=== PATIENT | female | born 1985 | race Caucasian/White ===

== ENCOUNTER 2025-06-20 16:43 | Emergency (ER) | payer OTHER ==
--- OUTSIDE RECORDS SUMMARY | 2025-06-20 16:48 | XMS REPORT | Continuity of Care Document ---
Author Name Unknown Address [address] [facility] [address] [place] [address] [facility] Address [address] [facility] [place] [address] Care Team Providers Care Purification Operator Helper Name Role Phone Pcp, Pcp Primary Care Physician Unavailab Michelle Chase Attending Clinician Unavail able MARLO MARSHALL Attending Clinician Unavailable Ecg, Phy Sw Attending Clinician Unavailable Marlo Marshall MD Attending Clinician BRANDEN_Mariola_Fabricio Attending Clinician UnavailJuan Esparza Attending Clinician Unavailable BRANEDN_Tonio_Fabricio Attending Clinician Unavail able BRANDEN_CHRISSY_Ricardo_Fabricio Admitting Clinician Unavaila Juan Verma E Admitting Clinician Unavailable BRANDEN_Cassidy Admitting Clinician Unavail able Payers Payer Name Policy Type Policy Number Effective Date Expirati on Date Source AETNA HMO/CHOICE COMM [id number] 2022 00:00:00 [employer] (POS) [id number] 2022 00:00:00 [employer]MIN[employer]AT[employer] - PHCS (PPO) [id number] Problems Condition Name Condition Details Condition Category Status Onset Date Resolution Date Last Treatment Date Treating Clinician Comments Source - induced hypertensi on - induced Hypertensi on Problem Active 10-04 00:00: 00 [facility] Gestationa l diabetes mellitus Gestationa l Diabetes Mellitus Problem Active 2023-1 2-26 00:00: 00 [facility] Gastroesop hageal reflux disease Gastroesop hageal Reflux Disease Problem Active 2022-09 2-13 00:00: 00 [facility] Advanced maternal age Advanced Maternal Age Problem Active 8-02 00:00: 00 [facility] Missed period Missed Period Problem Active 6-19 00:00: 00 [facility] Allergies, Adverse Reactions, Alerts Allergy Name Allergy Type Status Severity Reaction(s) Onset Date Inactive Date Treating Clinician Comments Source No Known Allergie s DA Active U 2-06 00:00: 00 [facility] No Known Allergie s DA Active U 1-17 00:00: 00 [facility] Hydrocod one Allergy to substanc e Active Itching, Other, Unknown - 00:00: 00 Yoni [facility] Social History Social Habit Start Date Stop Date Quantity Comments Source Sexual orientation [facility] ASSERTION Possible [facility] Tobacco use and exposure 2024-09-30 00:00:00 2024-09-30 00:00:00 Smokeless tobacco non-user [facility] Alcoholic beverage intake 2024-09-30 00:00:00 2024-09-30 00:00:00 Lifetime non-drinker (finding) [facility] History of Social function 2024-09-30 00:00:00 2024-09-30 00:00:00 [facility] Smoking Status Start Date Stop Date Source Never smoked tobacco [facility] Medications Ordered Medication Name Filled Medication Name Start Date Stop Date Current Medication? Ordering Clinician Indication Dosage Frequency Signature (SIG) Comments Components Source Multiple Vitamin (multivitam in) capsule Multiple Vitamin (multivitam in) capsule 09-30 09:53: 51 Yes 1{capsu le} QD Take 1 capsule by mouth 1 time each day. Yoni dumont [employer] Vicki 1.5/30 1.5-30 MG-MCG tablet Vicki 1.5/30 1.5-30 MG-MCG tablet 2023-09 00:00: 00 Yes 1{tbl} QD Take 1 tablet by mouth 1 time each day. Yoni dumont [facility] Adderall Adderall No Adderall [facility] Vicki 1.5 mg-30 mcg tablet TAKE 1 TABLET BY MOUTH DAILY Vicki 1.5 mg-30 mcg tablet TAKE 1 TABLET BY MOUTH DAILY No Vicki 1.5 mg-30 mcg tablet TAKE 1 TABLET BY MOUTH DAILY [facility] Wegovy Wegovy No Wegovy [facility] Vital Signs Vital Name Observation Time Observation Value Comments S ource BP Systolic 2025-03-31 00:00:00 123 mm[Hg] [facility] BMI (Body Mass Index) 2025-03-31 00:00:00 26.9 kg/m2 [facility] BP Diastolic 2025-03-31 00:00:00 88 mm[Hg] [facility] Height 2025-03-31 00:00:00 63 [in_i] [facility] Body Weight 2025-03-31 00:00:00 152 [lb_av] [facility] Systolic blood pressure 2024-09-30 09:58:00 107 mm[Hg] [facility] Diastolic blood pressure 2024-09-30 09:58:00 77 mm[Hg] [facility] Heart rate 2024-09-30 09:58:00 91 /[facility] Body height 2024-09-30 09:55:00 160 cm [facility] Body weight 2024-09-30 09:55:00 75.479 kg [facility] BMI 2024-09-30 09:55:00 29.48 kg/m2 [facility] Oxygen saturation in Arterial blood by Pulse oximetry 2024-09-30 09:55:00 98 /min [facility] Systolic blood pressure 2024-09-30 09:58:00 107 mm[Hg] [facility] Diastolic blood pressure 2024-09-30 09:58:00 77 mm[Hg] [facility] Heart rate 2024-09-30 09:58:00 91 /min [facility] height 2024-09-30 09:55:00 160 cm [facility] Body weight 2024-09-30 09:55:00 75.479 kg [facility] BMI 2024-09-30 09:55:00 29.48 kg/m2 Bob Acostaann [facility] Oxygen saturation in Arterial blood by Pulse oximetry 2024-09-30 09:55:00 98 /min [facility] Body Weight 2024-02-26 00:00:00 171 [lb_av] [facility] Height 2024-02-26 00:00:00 63 [in_i] [facility] BP Diastolic 2024-02-26 00:00:00 87 mm[Hg] [facility] BMI (Body Mass Index) 2024-02-26 00:00:00 30.3 kg/m2 [facility] BP Systolic 2024-02-26 00:00:00 128 mm[Hg] [facility] Height 2023-12-04 00:00:00 63 [in_i] [facility] BP Diastolic 2023-12-04 00:00:00 81 mm[Hg] [facility] BMI (Body Mass Index) 2023-12-04 00:00:00 31.7 kg/m2 [facility] Body Weight 2023-12-04 00:00:00 179 [lb_av] [facility] BP Systolic 2023-12-04 00:00:00 125 mm[Hg] [facility] Height 2023-11-06 00:00:00 63 [in_i] [facility] Body Weight 2023-11-06 00:00:00 177 [lb_av] [facility] BMI (Body Mass Index) 2023-11-06 00:00:00 31.4 kg/m2 [facility] BP Diastolic 2023-11-06 00:00:00 82 mm[Hg] [facility] BP Systolic 2023-11-06 00:00:00 133 mm[Hg] [facility] Procedures Procedure Date / Time Performed Performing Clinicia n Source SCREENING MAMMOGRAPHY BI 2-VIEW BREAST INC CAD 2025-03-31 00:00:00 [facility] ECG 12-LEAD 2024-09-30 11:00:51 Marlo Marshall [place] [id number] 2023-10-22 00:00:00 TY.01 [facility] [id number] 2023-10-22 00:00:00 TY.01 [facility] ECG 12 lead [facility] Alejandro [facility] Plan of Care Planned Activity Planned Date Details Comments Source Encounters Start Date/Time End Date/Time Encounter Type Admission Type Attending [facility] Care Facility Care Department Encounter ID Source 2025-03-31 00:00:00 2025-03-31 00:00:00 Juan Olivarez MD: [address] [place] [address] , Ph. [facility] Office [id number] [facility] 2024-09-30 00:00:00 2024-09-30 14:54:46 Telephone Michelle Rodney Carla [facility] [id number] Gwenbruce dumont [facility] 2024-09-30 09:48:29 2024-09-30 10:42:00 Outpatient Elective MARLO MARSHALL EOUT EOUT [id number] 2024-09-30 09:40:00 2024-09-30 10:42:00 Consult Ecg, Phy aMrlo Zamora [facility] 7737 [id number] Yoni dumont [facility] 2024-02-26 00:00:00 2024-02-26 00:00:00 Juan Olivarez MD: [place] [address] , Ph. [facility] Office [id number] [facility] 2023-12-04 00:00:00 2023-12-04 00:00:00 Juan Olivarez MD: [address] [place] [address] , Ph. [facility] Office [id number] [facility] 2023-11-06 00:00:00 2023-11-06 00:00:00 Juan Olivarez MD: [address] [place] [address] , Ph. [facility] Office [id number] [facility] 2023-10-21 10:50:00 2023-10-24 19:36:00 Inpatient Juan Saunders [facility] OB [id number] [facility] 2023-10-18 00:00:00 2023-10-18 00:00:00 Barney Leung MD: [place] [address] , Ph. [facility] Office [id number] [facility] 2023-10-09 00:00:00 2023-10-09 00:00:00 Juan Olivarez MD: [address] [place] [address] , Ph. [facility] Office [id number] [facility] 2023-10-02 16:50:00 2023-10-04 13:55:00 Inpatient Juan Delgado [facility] [id number] [facility] Results Test Description Test Time Test Comments Results Result Co mments Source [facility], LB + HR [id number] 00:00:00* Test Item Value Reference Range Interpretation Comme nts LMP date: (test code = LMP date:) 02/26/2024 Pap, liquid-based (test code = Pap, liquid-based) ASC-US nilm A source (liquid-based cytology): (test code = source (liquid-based cytology):) CERVICAL (WHICH INCLUDES ENDOCERVICAL) [id number] 14:23:00* Test Item Value Reference Range Interpretation Comme nts SURGICAL (test code = SR) R UN DATE: 10/24/23 [facility] PAGE 1 RUN TIME: 1423 Specimen Inquiry RUN USER: INTERFACE P ATIENT: HERB YUN LOC: ZiaANJELUW U #: [id number] AGE/SX: 38/F ROOM: [facility] RE10/21/23REG DR: Juan Olivarez MD : 84 BED: A DIS: STATUS: ADM IN TLOC: SPEC #: [id number] RECD: 10/23/23 STATUS: STEFAN REQ #: [id number] HIRAM: 10/22/23-[address] [facility] DR: Juan Olivarez MD ENTERED: 10/23/23 SP TYPE: SURGICAL OTHR DR: ORDERED: ANATOMIC SPEC, SPEC TRACK, [id number] PROCEDURES: [id number] (10/23/23) TISSUES: A. PLACENTA, THIRD TRIMESTER (28 + WEEKS) FINAL DIAGNOSIS PLACENTA, DELIVERY: Membranes - Mild acute chorioamnionitis and mild meconium staining. Cotyledons - Consistent with gestational age. - Focal increased fibrin deposition. Umbilical cord - Three vessels. GROSS DESCRIPTION Fixative: FormalinLabeled: PlacentaSpecimen received: Javed placenta with attached membranes and attached umbilical cord Umbilical cord: 63 cm in length and ranges in diameter from 1.2 to 2.0 cmUmbilical cord insertion: Central; 8.5 cm from closest placental marginUmbilical cord appearance: Pale leigh-white and smooth with a false knot located 17 cm fromthe discUmbilical cord: 2-3 coils per 10 cm length; 3 vesselsFetal membranes: Leigh-berry, thin, translucentMembrane attachment type: MarginalSite of membrane rupture: Majority of the membranes are torn from the disc; site ofrupture cannot be determined Shape of disc: OvoidTrimmed weight: 647 gDimensions: 28.0 x 22.0 cm and ranging from 0.5-2.5 cm in thicknessFetal surface: Blue-berry, smooth and glisteningMaternal surface: Complete Cut surface: Maroon and spongy soft tissueLesions: None Health Services Manager sections submitted as follows: A1-A2: umbilical cord and membrane roll A3-A4: cross sections of disc 10/23/23 CONTINUED ON NEXT PAGE R UN DATE: 10/24/23 [facility] PAGE 2 RUN TIME: 8763 Specimen Inquiry RUN USER: INTERFACE S PEC #: [id number] PATIENT: EHRB YUN #[id number] (Continued) GROSS DESCRIPTION (Continued) Technical component performed at [facility], [place] [address] Immunohistochemical stains and Special Stains are performed at [facility], [address] [place] [address], [address], [place] [address] Unless gross only, the diagnosis is based upon microscopic examination. Immunohistochemistry: This test was developed and its performance characteristicsdetermined by this laboratory. It has not been approved nor does it need approval by [place] FDA. Appropriate positive and negative controls are reviewed and judged to beacceptable. This laboratory is certified under the Clinical Laboratory ImprovementAmendments (CLIA-88) as qualified to perform high complexity clinical laboratory testing. MICROSCOPIC DESCRIPTION Microscopic examination is performed and the findings are incorporated in the diagnosis. CLINICAL INFORMATION 10/22/23, , 39.2 WEEKS, NRFHT, GDM, GHTN. ---- Signed _ Taras Parra 10/24/23 1423 END OF REPORT HGB [id number] 06:20:00* Test Item Value Reference Range Interpretation Comme nts HEMOGLOBIN (test code = HGB) 10.3 g/dL 10.1-13.8 Results verified by repeat analysis HEMATOCRIT (test code = HCT) 30.8 % 32.5-41.8 L Results verified by repeat analysis Hemoglobin and Hematocrit panel - [id number] 05:23:00* Test Item Value Reference Range Interpretation Comme nts hemoglobin (test code = hemoglobin) 10.3 g/dL 10.1-13.8 hematocrit (test code = hematocrit) 30.8 % 32.5-41.8 L performing lab: (test code = performing lab:) [facility] [id number] 10:30:00* Test Item Value Reference Range Interpretation Comme nts GLUBED (test code = GLUBED) 82 mg/dL 65-110 N [id number] 06:06:00* Test Item Value Reference Range Interpretation Comme nts GLUBED (test code = GLUBED) 131 mg/dL 65-110 H [id number] 00:37:00* Test Item Value Reference Range Interpretation Comme nts GLUBED (test code = GLUBED) 98 mg/dL 65-110 N [id number] 20:38:00* Test Item Value Reference Range Interpretation Comme nts GLUBED (test code = GLUBED) 74 mg/dL 65-110 N [id number] 16:42:00* Test Item Value Reference Range Interpretation Comme nts GLUBED (test code = GLUBED) 98 mg/dL 65-110 N AG HEPATITIS B [id number] 14:24:00* Test Item Value Reference Range Interpretation Comme nts AG HEPATITIS B SURFACE (test code = HBSAG) NONREACTIVE NONREACTIVE AB HEPATITIS C [id number] 14:24:00* Test Item Value Reference Range Interpretation Comme nts AB HEPATITIS C (test code = HCVAB) NONREACTIVE NONREACTIVE SIGNAL TO CUTOFF (test code = CUTOFF) 0.06 <0.80 N AB [id number] 14:24:00* Test Item Value Reference Range Interpretation Comme nts AB TREPONEMA (test code = TREPAB) NONREACTIVE NONREACTIVE AB HIV 1 14:24:00* Test Item Value Reference Range Interpretation Comme nts AB HIV 1 2 (test code = [id number]) NONREACTIVE NONREACTIVE Done by [employer] 4[employer] Gen HIV Ag/Ab Combo Screen COMPREHENSIVE METABOLIC [id number] 13:13:00* Test Item Value Reference Range Interpretation Comme nts SODIUM (test code = NA) 136 mEq/L 135-145 N POTASSIUM (test code = K) 4.3 mEq/L 3.5-5.0 N CHLORIDE (test code = CL) 105 mEq/L 100-115 N CARBON DIOXIDE (test code = CO2) 20 mEq/L 22-31 L ANION GAP (test code = GAP) 15.20 10-20 N GLUCOSE (test code = GLU) 82 mg/dL 65-110 N BLOOD UREA NITROGEN (test code = BUN) 14 mg/dL 7-18 N CREATININE (test code = CREAT) 0.9 mg/dL 0.5-1.0 N TOTAL PROTEIN (test code = PROT) 6.0 gm/dL 6.3-8.2 L ALBUMIN (test code = ALB) 2.2 gm/dL 3.4-4.8 L CALCIUM (test code = CA) 8.8 mg/dL 8.4-10.2 N BILIRUBIN TOTAL (test code = BILT) 0.2 mg/dL 0.2-1.0 N SGOT/AST (test code = AST) 30 units/L 15-37 N SGPT/ALT (test code = ALT) 29 units/L 12-78 N ALKALINE PHOSPHATASE TOTAL (test code = ALKP) 281 units/L 46-116 H GLOMERULAR FILTRATION RATE (test code = GFR) 83 ml/min >60 N The Glomerular Filtration Rate is a calculated parameterbased on serum Creatinine, patient age and sex. GFR valuesless than 60 mL/min/1.73 square meters are indicative ofChronic Kidney Disease. Values less than 15 mL/min/1.73square meters indicate Kidney failure. The calculation forGFR is based on the CKD-EPI (2020) calculation. This formulais race indifferent and is the recommended formula for GFRby the National Kidney Foundation for Adults.The GFR will not calculate if the sex is unknown or if thepatient's age is <18 years. CBC W/AUTO [id number] 12:41:00* Test Item Value Reference Range Interpretation Comme nts WHITE BLOOD CELL (test code = WBC) 10.4 K/mm3 6.5-12.3 N RED BLOOD CELL (test code = RBC) 4.64 M/mm3 3.51-4.69 N HEMOGLOBIN (test code = HGB) 13.6 g/dL 10.1-13.8 N HEMATOCRIT (test code = HCT) 40.3 % 32.5-41.8 N MEAN CELL VOLUME (test code = MCV) 86.9 fL 84.6-96.6 N MEAN CELL HGB (test code = MCH) 29.3 pg 27.3-33.9 N MEAN CELL HGB CONCETRATION ( test code = MCHC) 33.7 gm/dL 32.0-34.2 N RED CELL DISTRIBUTION WIDTH (test code = RDW) 15.9 % 12.2-16.3 N PLATELET COUNT (test code = PLT) 219 K/mm3 134-363 N MEAN PLATELET VOLUME (test c ode = MPV) 11.2 fL 9.2-12.7 N NEUTROPHIL % (test code = NT%) 69.5 % 57.9-77.3 N LYMPHOCYTE % (test code = LY%) 21.7 % 14.5-29.7 N MONOCYTE % (test code = MO%) 6.6 % 3.6-10.2 N EOSINOPHIL % (test code = EO%) 0.5 % 0.0-3.0 N BASOPHIL % (test code = BA%) 0.7 % 0.1-0.9 N NEUTROPHIL # (test code = NT#) 7.2 K/mm3 LYMPHOCYTE # (test code = LY#) 2.3 K/mm3 MONOCYTE # (test code = MO#) 0.7 K/mm3 EOSINOPHIL # (test code = EO#) 0.05 K/mm3 BASOPHIL # (test code = BA#) 0.1 K/mm3 RBC MORPHOLOGY REQUIRED (kobe t code = RBCM) NORMAL NORMAL PLATELET MORPHOLOGY REQUIRED (test code = PLTMR) NORMAL NORMAL COMPREHENSIVE METABOLIC [id number] 06:54:00* Test Item Value Reference Range Interpretation Comme nts SODIUM (test code = NA) 139 mEq/L 135-145 N POTASSIUM (test code = K) 4.7 mEq/L 3.5-5.0 N CHLORIDE (test code = CL) 108 mEq/L 100-115 N CARBON DIOXIDE (test code = CO2) 21 mEq/L 22-31 L ANION GAP (test code = GAP) 14.40 10-20 N GLUCOSE (test code = GLU) 84 mg/dL 65-110 N BLOOD UREA NITROGEN (test code = BUN) 12 mg/dL 7-18 N GLOMERULAR FILTRATION RATE (test code = GFR) 117 ml/min >60 N The Glomerular Filtration Rate is a calculated parameterbased on serum Creatinine, patient age and sex. GFR valuesless than 60 mL/min/1.73 square meters are indicative ofChronic Kidney Disease. Values less than 15 mL/min/1.73square meters indicate Kidney failure. The calculation forGFR is based on the CKD-EPI (202) calculation. This formulais race indifferent and is the recommended formula for GFRby the National Kidney Foundation for Adults.The GFR will not calculate if the sex is unknown or if thepatient's age is <18 years. CREATININE (test code = CREAT) 0.6 mg/dL 0.5-1.0 N TOTAL PROTEIN (test code = PROT) 5.3 gm/dL 6.3-8.2 L ALBUMIN (test code = ALB) 1.9 gm/dL 3.4-4.8 L CALCIUM (test code = CA) 8.6 mg/dL 8.4-10.2 N BILIRUBIN TOTAL (test code = BILT) 0.3 mg/dL 0.2-1.0 SGOT/AST (test code = AST) 31 units/L 15-37 N SGPT/ALT (test code = ALT) 23 units/L 12-78 N ALKALINE PHOSPHATASE TOTAL (test code = ALKP) 232 units/L 46-116 H CBC W/AUTO [id number] 06:36:00* Test Item Value Reference Range Interpretation Comme nts WHITE BLOOD CELL (test code = WBC) 8.8 K/mm3 6.5-12.3 N RED BLOOD CELL (test code = RBC) 4.33 M/mm3 3.51-4.69 N HEMOGLOBIN (test code = HGB) 12.4 g/dL 10.1-13.8 N HEMATOCRIT (test code = HCT) 37.7 % 32.5-41.8 N MEAN CELL VOLUME (test code = MCV) 87.1 fL 84.6-96.6 N MEAN CELL HGB (test code = MCH) 28.6 pg 27.3-33.9 N MEAN CELL HGB CONCETRATION ( test code = MCHC) 32.9 gm/dL 32.0-34.2 N RED CELL DISTRIBUTION WIDTH (test code = RDW) 13.6 % 12.2-16.3 N PLATELET COUNT (test code = PLT) 232 K/mm3 134-363 N MEAN PLATELET VOLUME (test c ode = MPV) 11.5 fL 9.2-12.7 N NEUTROPHIL % (test code = NT%) 58.5 % 57.9-77.3 N LYMPHOCYTE % (test code = LY%) 31.3 % 14.5-29.7 H MONOCYTE % (test code = MO%) 7.4 % 3.6-10.2 N EOSINOPHIL % (test code = EO%) 1.1 % 0.0-3.0 N BASOPHIL % (test code = BA%) 0.8 % 0.1-0.9 N NEUTROPHIL # (test code = NT#) 5.2 K/mm3 LYMPHOCYTE # (test code = LY#) 2.8 K/mm3 MONOCYTE # (test code = MO#) 0.7 K/mm3 EOSINOPHIL # (test code = EO#) 0.10 K/mm3 BASOPHIL # (test code = BA#) 0.1 K/mm3 [id number] 06:04:00* Test Item Value Reference Range Interpretation Comme nts GLUBED (test code = GLUBED) 92 mg/dL 65-110 N [id number] 20:24:00* Test Item Value Reference Range Interpretation Comme nts GLUBED (test code = GLUBED) 117 mg/dL 65-110 H [id number] 15:49:00* Test Item Value Reference Range Interpretation Comme nts GLUBED (test code = GLUBED) 108 mg/dL 65-110 N COMPREHENSIVE METABOLIC [id number] 12:52:00* Test Item Value Reference Range Interpretation Comme nts SODIUM (test code = NA) 137 mEq/L 135-145 N POTASSIUM (test code = K) 3.8 mEq/L 3.5-5.0 N CHLORIDE (test code = CL) 104 mEq/L 100-115 N CARBON DIOXIDE (test code = CO2) 21 mEq/L 22-31 L ANION GAP (test code = GAP) 15.80 10-20 N GLUCOSE (test code = GLU) 132 mg/dL 65-110 H BLOOD UREA NITROGEN (test code = BUN) 17 mg/dL 7-18 N CREATININE (test code = CREAT) 1.0 mg/dL 0.5-1.0 N TOTAL PROTEIN (test code = PROT) 5.7 gm/dL 6.3-8.2 L ALBUMIN (test code = ALB) 1.8 gm/dL 3.4-4.8 L CALCIUM (test code = CA) 8.6 mg/dL 8.4-10.2 N BILIRUBIN TOTAL (test code = BILT) 0.1 mg/dL 0.2-1.0 L SGOT/AST (test code = AST) 23 units/L 15-37 SGPT/ALT (test code = ALT) 20 units/L 12-78 N ALKALINE PHOSPHATASE TOTAL (test code = ALKP) 220 units/L 46-116 H GLOMERULAR FILTRATION RATE (test code = GFR) 73 ml/min >60 N The Glomerular Filtration Rate is a calculated parameterbased on serum Creatinine, patient age and sex. GFR valuesless than 60 mL/min/1.73 square meters are indicative ofChronic Kidney Disease. Values less than 15 mL/min/1.73square meters indicate Kidney failure. The calculation forGFR is based on the CKD-EPI (2021) calculation. This formulais race indifferent and is the recommended formula for GFRby the National Kidney Foundation for Adults.The GFR will not calculate if the sex is unknown or if thepatient's age is <18 years. LIVER [id number] 12:52:00* Test Item Value Reference Range Interpretation Comme nts BILIRUBIN DIRECT (test code = BILD) <0.1 mg/dL <0.2 N [id number] 12:02:00* Test Item Value Reference Range Interpretation Comme nts GLUBED (test code = GLUBED) 97 mg/dL 65-110 N CBC W/AUTO [id number] 11:30:00* Test Item Value Reference Range Interpretation Comme nts WHITE BLOOD CELL (test code = WBC) 7.8 K/mm3 6.5-12.3 N RED BLOOD CELL (test code = RBC) 4.12 M/mm3 3.51-4.69 N HEMOGLOBIN (test code = HGB) 13.1 g/dL 10.1-13.8 N HEMATOCRIT (test code = HCT) 35.8 % 32.5-41.8 N MEAN CELL VOLUME (test code = MCV) 86.9 fL 84.6-96.6 N MEAN CELL HGB (test code = MCH) 31.8 pg 27.3-33.9 N MEAN CELL HGB CONCETRATION ( test code = MCHC) 36.6 gm/dL 32.0-34.2 H RED CELL DISTRIBUTION WIDTH (test code = RDW) 13.5 % 12.2-16.3 N PLATELET COUNT (test code = PLT) 216 K/mm3 134-363 N MEAN PLATELET VOLUME (test c ode = MPV) 10.9 fL 9.2-12.7 N NEUTROPHIL % (test code = NT%) 65.0 % 57.9-77.3 N LYMPHOCYTE % (test code = LY%) 25.8 % 14.5-29.7 N MONOCYTE % (test code = MO%) 6.6 % 3.6-10.2 N EOSINOPHIL % (test code = EO%) 0.9 % 0.0-3.0 N BASOPHIL % (test code = BA%) 0.9 % 0.1-0.9 N NEUTROPHIL # (test code = NT#) 5.1 K/mm3 LYMPHOCYTE # (test code = LY#) 2.0 K/mm3 MONOCYTE # (test code = MO#) 0.5 K/mm3 EOSINOPHIL # (test code = EO#) 0.07 K/mm3 BASOPHIL # (test code = BA#) 0.1 K/mm3 - FLW [id number] 09:15:00 [facility] : 1985 Sex: F Patient Name: HERB YUN Unit No: [id number] EXAMS: C[place]: [id number] [id number] Indication ======== Evaluation of growth History ====== OB History 1. Para 0 Method ====== Transabdominal ultrasound examination ========= Jaevd . Number of fetuses: 1 Dating ====== Date Details Gest. age JOSE Stated JOSE 36 w + 4 d 10/27/2023 U/S 10/03/2023 based upon AC, BPD, Femur, HC, Humerus 38 w + 3 d 10/14/2023 Assigned dating based on statedEDD, selected on 10/03/2023 36 w + 4 d 10/27/2023 General Evaluation Cardiac activitypresent. FHR 148 bpm. Presentation: cephalic Placenta: Placental site: anterior, Grade 2, no previaAmniotic fluid: Amount of AF: normal. MVP 5.4 cm. QAMAR 20.5 cm Biometry BPD 96.3mm 39w 2d >99% Hadlock HC 350.6 mm 40w 6d 97% Hadlock AC 341.5 mm 38w 0d 92% Hadlock Femur 72.5 mm 37w 1d 62% Hadlock Humerus 63.0 mm [facility] NAME: HERB YUN Radiology Department PHYS: Juan Robledo MD [address] : 1985 AGE: 38 SEX: Hanna [place] [address] LOC: Antwan Briones PHONE #: [phone] EXAM DATE: 10/03/2023 STATUS: ADM IN FAX #: [phone] RAD NO: Page 1 Signed Report (CONTINUED) Patient Name: HERB YUN Unit No: [id number] EXAMS: CPT CODE: [id number] [place] FLW UP 13996 (Continued) 36w 4d 72% Johnathon HC / AC 1.03 Weight Calculation: EFW 3,454 g 39w 1d 91% Hadlock EFW (lb,oz) 7 lb10 oz EFW by Hadlock ([id number]) Head / Face / Neck Biometry: Cephalic index 0.76 7% Nicolaides Extremities / Bony Struc Biometry: FL / BPD 0.75 FL / HC 0.21 FL / AC 0.21 Anatomy The following structures appear normal: Head / Neck Cavum septi pellucidi. Heart / Thorax 4-chamber view. Abdomen Stomach. Bladder. Maternal Structures Cervix Not visualized Right Ovary Not visualized Left Ovary Not visualized Impression ========= Suspect LGA fetus (>90%). EFWis 3454 g at the 91%. at 0915 Reported and signed by: Celina Rader MD CC: Juan Olivarez MD Technologist: Paige Canas RDMS Probe: Trnscrbd D/ (914) GCD.CPS Orig Print D/T: S: 10/03/2023 (0915) [facility] NAME: HERB YUN Radiology Department PHYS: Juan Robledo MD [address] : 1985 AGE: 38 SEX: F [place], [place] [address] LOC: F.3014 A PHONE #: [phone] EXAM DATE: 10/03/2023 STATUS: ADM IN FAX #: [phone] RAD NO: Page 2 Signed Report Patient Name: HERB YUN Unit No: [id number] EXAMS: CPT CODE: [id number] US FLW UP 31962 (Continued) [facility] NAME: PRABHUEPHRAIMHERB Radiology Department PHYS: Juan Robledo MD [address] : 1985 AGE: 38 SEX: F [place], [place] [address]XJAC NO: [id number] LOC: Yael4 A PHONE #: [phone] EXAM DATE: 10/03/2023 STATUS: ADM IN FAX #: [phone] RAD NO: Page 3 Signed [id number] 06:07:00 * Test Item Value Reference Range Interpretation Comme nts GLUBED (test code = GLUBED) 96 mg/dL 65-110 N [id number] 21:34:00* Test Item Value Reference Range Interpretation Comme nts GLUBED (test code = GLUBED) 125 mg/dL 65-110 H AG HEPATITIS B [id number] 18:17:00* Test Item Value Reference Range Interpretation Comme nts AG HEPATITIS B SURFACE (test code = HBSAG) NONREACTIVE NONREACTIVE AB HEPATITIS C [id number] 18:17:00* Test Item Value Reference Range Interpretation Comme nts AB HEPATITIS C (test code = HCVAB) NONREACTIVE NONREACTIVE SIGNAL TO CUTOFF (test code = CUTOFF) 0.06 <0.80 N AB [id number] 18:17:00* Test Item Value Reference Range Interpretation Comme nts AB TREPONEMA (test code = TREPAB) NONREACTIVE NONREACTIVE AB HIV 1 18:17:00* Test Item Value Reference Range Interpretation Comme nts AB HIV 1 2 (test code = [id number]) NONREACTIVE NONREACTIVE Done by [employer] 4th Gen HIV Ag/Ab Combo Screen URIC [id number] 17:08:00* Test Item Value Reference Range Interpretation Comme nts URIC ACID (test code = URIC) 5.6 mg/dL 2.6-6.0 N LACTIC DEHYDROGENASE(LDH)2023-10-02 17:08:00* Test Item Value Reference Range Interpretation Comme nts LACTIC DEHYDROGENASE(LDH) (t est code = LDH) 491 units/L 81-234 H COMPREHENSIVE METABOLIC [id number] 17:08:00* Test Item Value Reference Range Interpretation Comme nts SODIUM (test code = NA) 135 mEq/L 135-145 N POTASSIUM (test code = K) 5.4 mEq/L 3.5-5.0 H CHLORIDE (test code = CL) 103 mEq/L 100-115 N CARBON DIOXIDE (test code = CO2) 21 mEq/L 22-31 L ANION GAP (test code = GAP) 16.90 10-20 N GLUCOSE (test code = GLU) 109 mg/dL 65-110 N BLOOD UREA NITROGEN (test code = BUN) 19 mg/dL 7-18 H GLOMERULAR FILTRATION RATE (test code = GFR) 122 ml/min >60 N The Glomerular Filtration Rate is a calculated parameterbased on serum Creatinine, patient age and sex. GFR valuesless than 60 mL/min/1.73 square meters are indicative ofChronic Kidney Disease. Values less than 15 mL/min/1.73square meters indicate Kidney failure. The calculation forGFR is based on the CKD-EPI (2020) calculation. This formulais race indifferent and is the recommended formula for GFRby the National Kidney Foundation for Adults.The GFR will not calculate if the sex is unknown or if thepatient's age is <18 years. CREATININE (test code = CREAT) 0.5 mg/dL 0.5-1.0 N TOTAL PROTEIN (test code = PROT) 6.5 gm/dL 6.3-8.2 N ALBUMIN (test code = ALB) 2.3 gm/dL 3.4-4.8 L CALCIUM (test code = CA) 9.7 mg/dL 8.4-10.2 N BILIRUBIN TOTAL (test code = BILT) 0.3 mg/dL 0.2-1.0 N SGOT/AST (test code = AST) 53 units/L 15-37 H SGPT/ALT (test code = ALT) 25 units/L 12-78 N ALKALINE PHOSPHATASE TOTAL (test code = ALKP) 254 units/L 46-116 H UR PROTEIN/CREATININE [id number] 17:03:00* Test Item Value Reference Range Interpretation Comme nts UR PROTEIN RANDOM (test code = PROTU) 10.2 mg/dL No reference range available UR CREATININE RANDOM (test code = CREATU) 19.7 mg/dL No referenc e range available PROTEIN/CREATININE RATIO (test code = P/CRATIO) 517.7 mg/gcrea <200 H CBC W/AUTO [id number] 16:49:00* Test Item Value Reference Range Interpretation Comme nts WHITE BLOOD CELL (test code = WBC) 10.6 K/mm3 6.5-12.3 N RED BLOOD CELL (test code = RBC) 4.94 M/mm3 3.51-4.69 H HEMOGLOBIN (test code = HGB) 14.4 g/dL 10.1-13.8 H HEMATOCRIT (test code = HCT) 42.6 % 32.5-41.8 H MEAN CELL VOLUME (test code = MCV) 86.2 fL 84.6-96.6 N MEAN CELL HGB (test code = MCH) 29.1 pg 27.3-33.9 N MEAN CELL HGB CONCETRATION ( test code = MCHC) 33.8 gm/dL 32.0-34.2 N RED CELL DISTRIBUTION WIDTH (test code = RDW) 13.5 % 12.2-16.3 N PLATELET COUNT (test code = PLT) 261 K/mm3 134-363 N MEAN PLATELET VOLUME (test c ode = MPV) 11.0 fL 9.2-12.7 N NEUTROPHIL % (test code = NT%) 69.6 % 57.9-77.3 N LYMPHOCYTE % (test code = LY%) 22.8 % 14.5-29.7 N MONOCYTE % (test code = MO%) 5.6 % 3.6-10.2 N EOSINOPHIL % (test code = EO%) 0.4 % 0.0-3.0 N BASOPHIL % (test code = BA%) 0.8 % 0.1-0.9 N NEUTROPHIL # (test code = NT#) 7.4 K/mm3 LYMPHOCYTE # (test code = LY#) 2.4 K/mm3 MONOCYTE # (test code = MO#) 0.6 K/mm3 EOSINOPHIL # (test code = EO#) 0.04 K/mm3 BASOPHIL # (test code = BA#) 0.1 K/mm3 URINALYSIS [id number] 16:48:00* Test Item Value Reference Range Interpretation Comme nts UA COLOR (test code = COLU) YELLOW YELLOW UA APPEARANCE (test code = APPU) CLEAR CLEAR UA GLUCOSE DIPSTICK (test co de = DGLUU) NEGATIVE NEGATIVE UA BILIRUBIN DIPSTICK (test code = BILU) NEGATIVE NEGATIVE UA KETONE DIPSTICK (test cod e = KETU) NEGATIVE NEGATIVE UA SPECIFIC GRAVITY (test co de = SGU) 1.010 1.001-1.035 N UA BLOOD DIPSTICK (test code = MORGAN) NEG NEGATIVE UA PH DIPSTICK (test code = EDDIE) 6.0 5-9 UA PROTEIN DIPSTICK (test co de = PROU) NEGATIVE NEGATIVE UA UROBILINIOGEN DIPSTICK (t est code = URO) 0.2 EU/dL <=1.0 UA NITRITE DIPSTICK (test co de = NORMA) NEGATIVE NEGATIVE UA LEUKOCYTE ESTERASE DIPSTI CK (test code = LEUU) 3+ NEGATIVE A UA WBC (test code = WBCU) 21-30 #/hpf NONE SEEN A UA EPITHELIAL CELLS (test co de = EPIU) RARE #/HPF RARE-FEW UA RBC (test code = RBCU) 16-20 #/hpf NONE SEEN A UA BACTERIA (test code = BACU) RARE /HPF RARE-FEW URINE SAMPLE: CLEAN CATCH Notes Current Outpatient Medications on File Prior to VisitCurrent Outpatient MedicationsDIAGNOSTIC TESTS / RESULTSNo results found for: "CHOL", "HDL", "LDLCALC", "TRIG", "HGB", "PLT",# hyperlipidemia Date/Time Note Provider Source 2024-09-30 20:15:19 [facility] 2024-09-30 20:15:19 Marlo Marshall MD - 09/30/2024 9:40 AM 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 female who presented today for scheduled nonurgent appointment. Patient delivered a year ago, had gestational and briefly elev. Bp Now planning another Had sign. Elevated TG, Also taking adderal Not adherent to any specific diet Denies problems with chest pain / chest discomfort. Blood pressure is stable Denies palpitations / irregular heart beat. No shortness of breath at rest or with regular daily life activities. Exertional tolerance without significant changes. Denies problems suggestive of PND / orthopnea. No lower extremity edema No lower extremity pain. Denies problems with syncope/presyncope. No side effects from current medications reported. Recent blood work and testing reviewed / summarized below. PHYSICAL General: no acute distress, resting comfortably HEENT: anicteric sclerae, oral mucosa moist Neck: supple, carotid upstrokes brisk, no mass Cardiovascular: heart rate regular , no murmur Lungs: Normal respiratory effort, lungs clear to auscultation bilaterally Abdomen: soft, non-distended, no guarding, + BS Extremities: no clubbing, no edema Skin: warm, no jaundice, Psych: coherent, mood appropriate REVIEW OF SYSTEMS 14 point review of systems reviewed and pertinent positives were documented above. 09/30/2024 9:55 AM 09/30/2024 9:58 AM Vitals BMI 29.48 kg/m2 BSA (m2) 1.83 m2 Systolic 123 107 Diastolic 81 77 Heart Rate 92 91 Height (in) 1.6 m (5' 3") Weight (lb) 166.4 There is no problem list on file for this patient. History reviewed. No pertinent past medical history. No family history on file. Social History Social History Narrative Not on file Allergies Allergen Reactions Hydrocodone Itching, Other and Unknown Tobacco Use: Low Risk (09/30/2024) Patient History Smoking Tobacco Use: Never Smokeless Tobacco Use: Never Passive Exposure: Not on file Medication Sig Vicki 1.5/30 1.5-30 MG-MCG tablet Take 1 tablet by mouth 1 time each day. Multiple Vitamin (multivitamin) capsule Take 1 capsule by mouth 1 time each day. No current facility-administered medications on file prior to visit. Medication Instructions Vicki 1.5/30 1.5-30 MG-MCG tablet 1 tablet, Daily Multiple Vitamin (multivitamin) capsule 1 capsule, Daily "CREATININE", "BUN", "HGBA1C", "AST", "ALT" No echocardiogram results found for the past 12 months No nuclear medicine results found for the past 12 months Encounter Date: 09/30/24 ECG 12 lead Result Value Ventricular Rate 94 Atrial Rate 94 PA Interval 142 QRS Duration 72 QT/QTc 336 QTc Calculation 420 P-Villas 68 R-Villas 68 T-Villas 64 Impression SINUS RHYTHM NORMAL ECG NO PREVIOUS ECGS AVAILABLE ASSESSMENT AND PLAN Herb Yun is a 39 y.o. female with past medical history of : # gestational diabetes # peripartum HTN # ADD / on Adderall Prior mild gestational complications, Currently cp free, No sob ECG with normal SR, Pt now planning another , Will proceed with calcium score for risk stratification Discussed weight, diet, exercise with patient in relation to health conditions. The patient was counseled on dietary recommendations (DASH/AHA diet). Discussed target goals for blood pressure < 130/80. Reduce sodium intake below 2300 mg per day and ideally below 1500mg per day. Recommend limiting saturated fat to 5 to 6 percent of daily calories and minimizing the amount of trans fat. Implement a dietary pattern that emphasizes intake of vegetables, fruits, and whole grains; includes low-fat dairy products, poultry, fish, legumes, nontropical vegetable oils, and nuts. Limit intake of sweets, sugar-sweetened beverages, and red meats. Encouraged mild to moderate physical activity for ~ 30min daily / 5 days per week as well as continuing efforts to maintain a desirable body weight. Will follow up on CCS / if needed will proceed with additional testing. RTC as needed. care services related to patient s significant medical conditions which have consistency and continuity over time. *)Amount and/or complexity of data reviewed: Vital signs reviewed as summarized above. Clinical laboratory data, radiology / imaging tests reviewed Medications reviewed and updated as noted above. Related cardiology testing including new EKG, echocardiography, stress testing or angiography data was independently reviewed and verified. Additional records including imaging, notes from primary care physicians, subspecialty consultants, prior medical encounters were reviewed and pertinent info summarized. Time spent in examination and evaluation of the patient, review of available medical records, / chart review, counseling and coordination of care including discussion of treatment plans and goals of care, ordering tests and prescriptions, coordination of further care and preparing medical documentation. dictation software available immediately and in its entirety to the patient. The purpose of this medical record is for communication between medical health researcher, and as a result of such includes medical terminology and/or abbreviations. This documentation reflects time spent with the patient as well as potential time spent performing research, consultation, and/or record review that may have occurred outside of the patient encounter, and as result of human error may include minor omissions or discrepancies that are not intentional. Communication between the patient and physician is performed in person/virtual during the time of the visit and via written patient instructions, which are intentionally as free of medical terminology as possible. Any specific questions about this documentation are welcome, but may require a video, telephone, or in office encounter with the physician, which would be subject to copay and/or deductible. LINES OPERATOR [facility] Maintenance Due Date Last Done Comments Annual Physical 1987 Varicella Vaccines (1 of 2 - 13+ 2-dose series) 1997 DTaP/Tdap/Td Vaccines (1 - Tdap) 2003 Hepatitis B Vaccines (1 of 3 - 19+ 3-dose series) 2003 Pap Smear 2005 Cervical Cancer Screening 2014 HPV/Cotest 2014 Influenza Vaccine (#1) 2024 Mammogram 2024 Lipid Panel 09/01/2029 09/01/2024 HIB Vaccines Aged Out No longer eligi ble based on patient's age to complete this topic HPV Vaccines Aged Out No longer eligi ble based on patient's age to complete this topic Hepatitis A Vaccines Aged Out No long er eligible based on patient's age to complete this topic IPV Vaccines Aged Out No longer eligi ble based on patient's age to complete this topic Meningococcal Vaccine Aged Out No luzmaria ambrocio eligible based on patient's age to complete this topic Pneumococcal Vaccine: Pediat rics (0 to 5 Years) and At-Risk Patients (6 to 64 Years) Aged Out No longer eligible b ased on patient's age to complete this topic Rotavirus Vaccines Aged Out No longer eligible based on patient's age to complete this topic [id number] 20:15:19 Diagnosis Mixed hyperlipidemia - Prima ry Cardiac risk counseling [facility] [id number] 20:15:19 [facility] HospitalEzgojrv1022-20-40 14:54:52 [facility] [id number] 14:54:52 [place] [id number] 14:53:17 Order for Calcium score faxed to [place], confirmation received. [facility] location fax [phone] LINES OPERATOR [facility] [id number] 00:00:[id number] [address] PATIENT NAME: HERB YUN ADMIT DATE: 10/21/23 ACCOUNT NO: [id number] ROOM NO: [facility] AGE: 38 SEX: F ADMITTING PHYSICIAN: Juan Olivarez MD ATTENDING PHYSICIAN: Juan Olivarez MD Provider Query QUERY TEXT: Clarification Pathology 360MD Query related questions should be directed to: [facility] Coding Query Helpline Based on your clinical judgment, can you confirm the diagnosis that represents the pathology finding(s) of [Mild acute chorioamnionitis]? Reporting of pathology findings require confirmation by the attending physician and/or surgeon. The patient's Clinical Indicators include: Mild acute chorioamnionitis - Pathology 10/24/23 Options provided: -- I am in agreement -- I am not in agreement -- Other - I will add my own diagnosis -- Dismiss - Not applicable / Not valid -- Dismiss - Clinically unable to determine / Unknown -- Assign to another provider QUERY RESPONSE: No, I am not in agreement with the pathology finding(s) noted above. Query created by: DANIELA HOLLAND on 10/26/2023 6:16 AM at 0000 PATIENT NAME: HERB YUN 00:00:[id number] [place] [address] PATIENT NAME: HERB YUN ADMIT DATE: 10/21/23 ACCOUNT NO: [id number] ROOM NO: F.2222 AGE: 38 SEX: F ADMITTING PHYSICIAN: Juan Olivarez MD ATTENDING PHYSICIAN: Juan Olivarez MD Provider Query QUERY TEXT: Condition OB Blood Loss 360MD Query related questions should be directed to: [facility] Coding Query Helpline Based on your clinical judgment, please clarify the condition(s) that represent(s) the clinical indicators listed below. The medical record reflects the diagnosis/procedure of [Primary low uterine transverse section ] and associated [Insert disease process, trauma or surgery]. [OPERATIVE REPORT 10/22/2023)]: The patient's Clinical Indicators include: HEMATOCRIT (%) 30.8L 40.3 - LAB HEMOGLOBIN (g/dL) 10.3 13.6 - LAB Primary low uterine transverse section - OPERATIVE REPORT 10/22/2023 ESTIMATED BLOOD LOSS: 700. - OPERATIVE REPORT 10/22/2023 Continue taking these medications: PNV WITH FE FUMARATE/FA () 27 MG IRON-800 MCG TAB 1 TABLET ORAL DAILY. - OB Discharge 10/24/2023 Options provided: -- Acute hemorrhagic/blood loss anemia -- Chronic blood loss anemia -- Acute on chronic blood loss anemia -- Iron deficiency anemia -- Other deficiency anemia, Please specify type (e.g. vitamin, B12, folate, etc.) -- Inherited anemia, Please specify type (e.g. sickle cell, thalassemia, etc). -- Decreased hemoglobin and hematocrit values not diagnosed as anemia -- Dilutional -- Drug induced anemia, Please specify drug. -- Anemia due to other condition, Please specify condition. -- Anemia, unspecified -- Other - I will add my own diagnosis -- Dismiss - Not applicable / Not valid -- Dismiss - Clinically unable to determine / Unknown -- Assign to another provider QUERY RESPONSE: The patient decreased hemoglobin and hematocrit values not diagnosed as anemia. Query created by: DANIELA HOLLAND on 10/26/2023 6:20 AM at 0000 PATIENT NAME: HERB YUN 15:03:00 [facility] OB Disch REPORT#:[id number] REPORT STATUS: Signed REPORT INITIALIZATION DATE:10/24/23 TIME: 1502 PATIENT: HERB YUN UNIT #: [id number] ROOM/BED: [address] : [birth year] AGE: 38 SEX: F ATTEND: Juan Olivarez MD ADM AUTHOR: Juan Olivarez MD REPT SERVICE DT/TIME: 10/24/23 1503 * ALL edits or amendments must be made on the electronic/computer document * Subjective Subjective Admission EGA: Weeks: 39 Days: 2 Status/day: post (Day 2), post operative (Day 1) Patient reports: Patient reports: Yes: normal lochia, pain management effective, tolerating po well, voiding well, tolerating ambulation. No: complaints. Objective General VS: Vital Signs Date Temp Pulse Resp B/P B/P Mean Pulse Ox FiO2 10/23-10/24 97.2-97.9 91-97 18-19 100-146/64-85 76.0-79.0 97-99 Last Documented: Result Date Time Pulse Ox 98 10/24 1300 B/P 145/85 10/24 1300 Temp 97.5 10/24 1300 Pulse 92 10/24 1300 Resp 18 10/24 1300 B/P Mean 76.0 10/23 2019 PATIENT WEIGHT: Weight (lb): 200 Weight (oz): Weight (kg): 90.900 Physical Exam Neuro: Exam: alert, oriented x3 Abdomen: soft, no abnormal tenderness, no guarding Incision site: well approximated edges, no drainage, no inflammation Uterus: involution appropriate, non-tender Lochia: normal Episiotomy or laceration: well approximated edges, no inflammation, no drainage noted Results Findings/Data: Laboratory Tests: 10/23 522 Hematology Hgb (10.1 - 13.8 g/dL) 10.3 Hct (32.5 - 41.8 %) 30.8 L Results: labs reviewed, vital signs stable Treatments Procedures Treatments Procedures: Primary LTCS Discharge Summary General Assessment: nml progress Date of admission: Date of admission: 10/21/23 Admission diagnosis: diabetes-gestational, HTN-gestational Hospital course: cervical ripening, induction of labor, primary LTCS in labor, epidural anesthesia, nml postop/postpart care Procedures: epidural anesthesia, primary CS delivery Discharge condition: stable Discharge to: Home/Self Care Discharge diagnosis: full-term uncomp delivery, gestational diabetes, gestational HTN Discharge management: less than 30 mins Baby A: status: live born Gender: male 1 minute: 9 5 minutes: 9 Nursing data: The data set between the solid lines has been imported from nursing documentation. Any exceptions have been noted below under Provider comments. Delivery date infant A: 10/22/23 Delivery time infant A: 1157 Birthweight (gm) infant A: 3630 Feeding preference: Gender A: Male 1 minute A: 9 5 minutes A: 9 10 minutes infant A: Provider comments on imported nursing data: [] Plan: routine care, circumcision today, discharge today Discharge Instructions Instructions: routine instr sheet given, instr and warnings rev'd, specific instr as noted Diet: Regular Activity: Do not Submerge Incision, Light Duty, No Driving, No [place] for 6 Wks Additional discharge routines: Attending Follow-Up Contraception discussed: abstinence for 4-6 weeks, will discuss at PP visit Discharge meds: Stop taking the following medications: ASPIRIN EC (ECOTRIN) 81 MG TAB.EC [address] MILLIGRAM ORAL DAILY. PANTOPRAZOLE DR (PROTONIX) 40 MG TAB.DR 40 MILLIGRAM ORAL DAILY. Continue taking these medications: PNV WITH FE FUMARATE/FA () 27 MG IRON-800 MCG TAB 1 TABLET ORAL DAILY. Prescriptions: e-prescribe Rx drug database reviewed: yes Add'l Follow-up Appointments Attending Physician: Attending Physician: Juan Olivarez MD Attending physician follow up timeframe: In 1-2 weeks at 1506 RPT #:[id number] END OF REPORT [id number] 13:26:00 [facility] OB Postpart Progr Note REPORT#:[id number] REPORT STATUS: Signed REPORT INITIALIZATION DATE:10/23/23 TIME: 1326 PATIENT: AJMAHERB OWEN UNIT #: [id number] ROOM/BED: [address] : [birth year] AGE: 38 SEX: F ATTEND: Juan Olivarez MD ADM AUTHOR: Juan Olivarez MD REPT SERVICE DT/TIME: 10/23/23 1326 * ALL edits or amendments must be made on the electronic/computer document * Subjective Subjective Admission EGA: Weeks: 39 Days: 2 Status/day: post operative (Day 1) Patient reports: Patient reports: Yes: normal lochia, pain management effective, tolerating po well, voiding well. No: complaints. Objective Nursing Documentation Review Nursing data: The data set between the solid lines has been imported from nursing documentation. Any exceptions have been noted below under Provider comments. Feeding preference: Post hemorrhage risk score: MedRisk Provider comments on imported nursing data: [] General VS: Vital Signs Date Temp Pulse Resp B/P B/P Mean Pulse Ox FiO2 10/22-10/23 97.5-98.9 74-92 16-30 100-169/59-103 80.0-126.0 97-99 Last Documented: Result Date Time B/P Mean 80.0 10/23 1200 Pulse Ox 98 10/23 1200 B/P 108/66 10/23 1200 Temp 97.5 10/23 1200 Pulse 78 10/23 1200 Resp 18 10/23 1200 PATIENT WEIGHT: Weight (lb): 200 Weight (oz): Weight (kg): 90.900 Medications: Active Meds + DC'd Last 24 Hrs Ibuprofen (IBUPROFEN 600 MG TAB) 600 MG Q6H PO Multivit/Folic Acid/Iron ( Vitamin Tablet) 1 TAB DAILY PO Oxycodone HCl (OXYIR 5MG TAB) 5 MG Q4H PRN PRN PO Oxycodone HCl (Oxycodone HCl 10 MG IR) 10 MG Q4H PRN PRN PO Docusate Sodium (DOCUSATE SODIUM 100 MG CAP) 100 MG Q12HR PO Ondansetron Base (ZOFRAN ODT 4MG) 4 MG Q6H PRN PRN PO Ondansetron HCl (ZOFRAN 2 MG/ML 4 MG SYR) 4 MG Q6H PRN PRN IV Acetaminophen (ACETAMINOPHEN 325 MG TAB) 650 MG Q6H PO Ketorolac Tromethamine (TORADOL 30 MG SYRINGE) 30 MG Q6HR IV (DC) Labetalol HCl (LABETALOL HCL 200 MG) 200 MG Q8H PO Bupivacaine HCl (SENSORCAINE PF 0.25% 30 ML) 30 ML .STK-MED ONE ZCHARGE (DC) Lidocaine/Epinephrine (XYLOCAINE 2%-EPI 1:200,000 - 20 ML PF) 20 ML .STK-MED ONE ZCHARGE (DC) Labetalol HCl (NORMODYNE 100 MG) 100 MG Q4H PRN PRN PO (DC) Oxytocin/Sodium Chloride (Oxytocin 15 units/NS 250 mL) 250 ML .STK-MED ONE INJ (DC) Al Hydrox/Mg Hydrox/Simethicone (MYLANTA 30 ML SUSP) 30 ML Q6H PRN PRN PO Dextrose/Lactated Ringer's (DEXTROSE 5% IN LACTATED RINGERS 1000 ML) 1,000 ML .[id number] IV (DC) Diphtheria/Pertussis/Tetanus Vacc (ADACEL VACCINE) 0.5 ML ASDIR IM Hydralazine HCl (hydrALAZINE HCL 20MG) 5 MG ONCE PRN IV (DC) Hydralazine HCl (hydrALAZINE HCL 20MG) 10 MG ASDIR PRN IV (DC) Hydrocortisone (HYDROCORTISONE 1%) 1 APPL ASDIR PRN TOPICAL Hydrocortisone/Pramoxine (ANALPRAM HC 2.5% CRM SINGLES) 1 GM ASDIR PRN RECTAL (CKD) Hydroxyzine HCl (ATARAX) 25 MG Q6H PRN PRN PO Labetalol HCl (NORMODYNE 100 MG/20 ML VIAL) 20 MG ASDIR PRN IV (DC) Labetalol HCl (NORMODYNE 100 MG/20 ML VIAL) 40 MG ASDIR PRN IV (DC) Measles/Mumps/Rubella Vaccine Live (M-M-R II VACCINE W DILUENT) 0.5 ML BEFORE DISCHG PRN SUBQ Methylergonovine Maleate (METHERGINE 0.2 MG/ML 1 ML AMP) 0.2 MG ASDIR PRN IM Naloxone HCl (NALOXONE HCL 0.4 MG/ML 1 ML VIAL) 0.04 MG Q4H PRN PRN IV Naloxone HCl (NALOXONE HCL 0.4 MG/ML 1 ML VIAL) 0.08 MG Q4H PRN PRN IV Neomycin/Polymyxin/Bacitracin (TRIPLE ANTIBIOTIC 0.94 GM) 1 APPLIC BID PRN TOPICAL Polyethylene Glycol (POLYETHYLENE GLYCOL PKT) 17 GM DAILY PRN PRN PO Senna (SENOKOT TAB) 2 TAB BEDTIME PRN PRN PO (CKD) Simethicone (SIMETHICONE 80 MG TAB) 80 MG PC HS PRN PRN PO Tranexamic Acid (Tranexamic Acid) 1,000 MG ASDIR PRN IV Sodium Chloride (SODIUM CHLORIDE 0.9% 100 mL MBP) 100 ML Zolpidem Tartrate (AMBIEN 5 MG UDTAB) 5 MG BEDTIME PRN PRN PO Physical Exam Neuro: Exam: alert, oriented x3 Abdomen: soft, no abnormal tenderness, no guarding Incision site: well approximated edges, no drainage, no inflammation Uterus: involution appropriate, non-tender Lochia: normal Results Findings/data: Laboratory Tests: 10/23 522 Hematology Hgb (10.1 - 13.8 g/dL) 10.3 Hct (32.5 - 41.8 %) 30.8 L Results: labs reviewed, vital signs stable Diagnosis, Assessment Plan Diagnosis, Assessment Plan Assessment: nml progress Plan: routine care, circumcision today, discharge tomorrow Plan discussed with: patient, spouse/partner at 1327 RUST #:[id number] END OF REPORT [id number] [facility] [address] [place], [place] [address] PATIENT NAME: HERB YUN ADMIT DATE: 10/21/23 ACCOUNT NO: [id number] ROOM NO: [facility] AGE: 38 SEX: F ADMITTING PHYSICIAN: Juan Olivarez MD ATTENDING PHYSICIAN: Juan Olivarez MD OPERATION DATE: 10/22/2023 PREOPERATIVE DIAGNOSES: 1. Term intrauterine at 39 and 2/7 weeks. 2. Gestational hypertension. 3. Gestational diabetes. 4. Persistent category 2 strip with failure to progress and inability to augment with Pitocin. POSTOPERATIVE DIAGNOSES: 1. Term intrauterine at 39 and 2/7 weeks. 2. Gestational hypertension. 3. Gestational diabetes. 4. Persistent category 2 strip with failure to progress and inability to augment with Pitocin. PROCEDURES PERFORMED: Primary low uterine transverse section. SURGEON: Aleisha Lee MD LINSEED OIL ORDER FILLER: Madhu Elizondo ANESTHESIA: Combined spinal epidural. ESTIMATED BLOOD LOSS: 700. INTRAVENOUS FLUIDS: 1 liter. URINE OUTPUT: 50. COMPLICATIONS: None. DISPOSITION: PACU and general nursery. FINDINGS: Include the following: A viable vigorous male infant with clear amniotic fluid in the vertex presentation high in the pelvis with a nuchal cord around the neck and the shoulder x1. Apgars 9 and 9, weight 8 pounds 0 ounces (3630 grams). PROCEDURE IN DETAIL: As follows: Herb was taken to the operating room in Labor and Delivery at [facility] where she was dosed via her indwelling epidural catheter for surgical level of anesthesia. She was placed in the left lateral tilt position. heart tones were checked and found to be PATIENT NAME: HERB YUN reassuring. Hansen catheter was in place from labor. SCDs were placed. Vaginal prep was performed due to being in labor with ruptured membranes. Once anesthesia confirmed an adequate level of anesthesia, then, an abdominal prep was performed in standard fashion. The patient was then prepped and draped in routine standard sterile fashion. An Allis test confirmed adequate level of anesthesia, timeout was performed and then an incision was created 2 cm above the symphysis pubis with skin knife. Deeper tissues were dissected with bipolar cautery to the level of the fascia, which was incised on either side of the midline and extended sharply. Two [place] were placed on the superior portion of the fascia, which was dissected off the rectus muscle superiorly and inferiorly bluntly as well as with bipolar cautery. Midline muscle was identified in a natural diastasis and furthered superiorly and inferiorly with blunt stretch and sharp dissection. Peritoneum was entered sharply, dissected inferiorly with bipolar cautery with care being taken not to penetrate the urinary bladder or any intraperitoneal contents. Blunt stretch furthered the incision bilaterally. vertex was palpated and found to be at the level of the incision. Russians and Warren were used to create a curvilinear incision in the lower uterine segment serosa and the bladder was bluntly dissected off the uterus. Bladder blade was replaced and then, uterus was scored in a curvilinear fashion with the deep knife. Successive passes resulted in entrance into the amniotic cavity, producing large amounts of clear amniotic fluid. vertex was stabilized and gentle fundal pressure resulted in delivery of the vertex. Nose and mouth were bulb suctioned. Nuchal cord was reduced. Remainder of the was delivered. Cord was clamped and cut. was passed to the nurse for evaluation. Placenta was extracted and discarded for pathological evaluation due to persistent category 2. Uterus was exteriorized, wrapped in moist lap, cleared of all clots and debris x2. Hysterotomy was closed with a running locked stitch of 0 Vicryl. Two additional [id number] were necessary resulting in excellent hemostasis. Bladder flap was closed with a running 2-0 Vicryl. Uterus was returned to the pelvis. Gutters were cleared of all clots and debris with copious irrigation. Hysterotomy was reinspected and found to be hemostatic. Peritoneum was closed with a running 2-0 Vicryl, muscles reapproximated with interrupted 2-0 Vicryl. Fascia was closed with 0 PDS x2. Subcutaneous tissues were irrigated, inspected and found to be hemostatic, reapproximated with a 2-0 plain and skin was closed with a subcuticular stitch. Sponge, lap, needle and instrument counts reported as correct. The patient went to PACU in good condition, as well and general nursery. Dictated By: Aleisha Lee MD Date Dictated: 10/22/2023 12:46:37 Date Transcribed: 10/22/2023 12:56:27 CASANDRA/ENOCH Receipt ID: [id number] Authenticated by Gloria Lee MD On 10/23/2023 05:36:53 AM at 0536 PATIENT NAME: HERB YUN 12:34:00 [facility] ([facility]) OB Delivery Note REPORT#:[id number] REPORT STATUS: Signed REPORT INITIALIZATION DATE:10/22/23 TIME: 1234 PATIENT: HERB YUN UNIT #: [id number] ROOM/BED: [address] : [address] AGE: 38 SEX: F ATTEND: Juan Olivarez MD ADM AUTHOR: Aleisha Lee MD REPT SERVICE DT/TIME: 10/22/23 1234 * ALL edits or amendments must be made on the electronic/computer document * OB Delivery Pre-delivery GBS status: GBS status: positive Prophylaxis administered: penicillin Admission EGA: Weeks: 39 Days: 2 Blood Loss/Details Blood loss at delivery: <1K: no sx hypovol=no hem, 700 Baby A Information Baby A information Delivery date: 10/22/23 Delivery time: 1157 status: live born Wt of baby (grams): 3630 Wt of baby (lbs/oz): 8#0 Gender: male 1 minute: 9 5 minutes: 9 Presentation: vertex Nuchal cord Baby A Nuchal cord: yes (loose and reduced) Delivery Delivery section indication: persistent category 2 Priority: indicated (add on) Decision to incision time: greater than 30 mins Antibiotic prior to incision: more than 1 dose )(SCDs applied activated: Yes Uterine incision: low transverse Consent: indication discussed, questions answered, pt consent to op delivery Mother's condition: mother stable Infant's condition: stable in room at 1241 RPT #:[id number] END OF REPORT [id number] 08:47:00 [facility] ([facility]) OB Intrapart Prog Note REPORT#:[id number] REPORT STATUS: Signed REPORT INITIALIZATION DATE:10/22/23 TIME: 08 PATIENT: HERB YUN UNIT #: [id number] ROOM/BED: [address] : [address] AGE: 38 SEX: F ATTEND: Juan Olivarez MD ADM AUTHOR: Aleisha Lee MD REPT SERVICE DT/TIME: 10/22/23 0847 * ALL edits or amendments must be made on the electronic/computer document * Subjective Subjective Patient reports: Patient reports: Yes comfortable with epidural Comments: overnight hx reviewed w/pt, and RN SROM 10/21- cyotec last pm w/pitocin this am last u/s: LGA VS MACROSOMIA at 34 weeks Objective Nursing Documentation Review Nursing data: The data set between the solid lines has been imported from nursing documentation. Any exceptions have been noted below under Provider comments. __ ROM date: 10/21/23 ROM time: 2029 __ Provider comments on imported nursing data: [] General VS: Last Documented: Result Date Time Pulse Ox 98 10/22 0758 Pulse 98 10/22 0758 B/P Mean 93.0 10/22 0757 B/P 140/65 10/22 0757 Temp 98.3 10/22 0754 Resp 16 10/21 2231 Vital Signs Date Temp Pulse Resp B/P B/P Mean Pulse Ox FiO2 10/21-10/22 97.8-98.8 81-113 16-18 114-189/57-10 82.0-138.0 97-100 2 PATIENT WEIGHT: Weight (lb): 200 Weight (oz): Weight (kg): 90.900 Objective Cervical/ exam: Dilatation (cm): 7 Effacement (%): 100 station: - 2 presentation: cephalic Uterine activity: Monitor: toco Frequency (description): regular Intensity: strong Resting tone: relaxed Current oxytocin: Indication: induction Infusion rate: 6.00 Procedures: artificial rupture memb, intrauterine press cath, vaginal exam, + forebag... fluid blood tinged but clear Vaginal bleeding: as expected FHR Evaluation Baby A: Baby A baseline: 150 bpm Baby A variability: moderate 6-25 bpm Baby A accelerations: 15 X 15 Baby A decelerations: late Baby A FHR category: category 1 Baby A notes: occ late timed shallow decelerations w/accels o/w Result Findings/Data: Laboratory Tests: 10/22 10/22 10/21 10/21 10/21 0603 0034 2036 1638 1226 Chemistry Sodium (135 - 145 mEq/L) 136 Potassium (3.5 - 5.0 mEq/L) 4.3 Chloride (100 - 115 mEq/L) 105 Carbon Dioxide (22 - 31 mEq/L) 20 L Anion Gap (10 - 20) 15.20 BUN (7 - 18 mg/dL) 14 Creatinine (0.5 - 1.0 mg/dL) 0.9 Glomerular Filtr Rate (>60 ml/min) 83 Glucose (65 - 110 mg/dL) 82 POC Glucose (65 - 110 mg/dL) 131 H 98 74 98 Calcium (8.4 - 10.2 mg/dL) 8.8 Total Bilirubin (0.2 - 1.0 mg/dL) 0.2 AST (15 - 37 units/L) 30 ALT (12 - 78 units/L) 29 Total Alk Phosphatase (46 - 116 281 H units/L) Total Protein (6.3 - 8.2 gm/dL) 6.0 L Albumin (3.4 - 4.8 gm/dL) 2.2 L Hematology WBC (6.5 - 12.3 K/mm3) 10.4 RBC (3.51 - 4.69 M/mm3) 4.64 Hgb (10.1 - 13.8 g/dL) 13.6 Hct (32.5 - 41.8 %) 40.3 MCV (84.6 - 96.6 fL) 86.9 MCH (27.3 - 33.9 pg) 29.3 MCHC (32.0 - 34.2 gm/dL) 33.7 RDW (12.2 - 16.3 %) 15.9 Plt Count (134 - 363 K/mm3) 219 MPV (9.2 - 12.7 fL) 11.2 Neut % (Auto) (57.9 - 77.3 %) 69.5 Lymph % (Auto) (14.5 - 29.7 %) 21.7 Glenn % (Auto) (3.6 - 10.2 %) 6.6 Eos % (Auto) (0.0 - 3.0 %) 0.5 Baso % (Auto) (0.1 - 0.9 %) 0.7 Neut # (Auto) (K/mm3) 7.2 Lymph # (Auto) (K/mm3) 2.3 Glenn # (Auto) (K/mm3) 0.7 Eos # (Auto) (K/mm3) 0.05 Baso # (Auto) (K/mm3) 0.1 Serology Treponema pallidum Ab (NONREACTIVE) NONREACTIVE Hep Bs Antigen (NONREACTIVE) NONREACTIVE Hepatitis C Antibody (NONREACTIVE) NONREACTIVE Hep C Ab Signal/Cutoff (<0.80) 0.06 HIV 1 2 Antibody (NONREACTIVE) NONREACTIVE Diagnosis, Assessment Plan Free Text A P: siup at 39.3 ghtn on labetolol gdm, diet controlled overall, reassuring mat/ status pitocin is off contractions adequate at this time by mvu will follow RBI for c/s discussed w/pt, , and RN at 0853 RPT #:[id number] END OF REPORT [id number] 04:32:00 [facility] ([facility]) OB Admission / H P REPORT#:[id number] REPORT STATUS: Signed REPORT INITIALIZATION DATE:10/22/23 TIME: 431 PATIENT: HERB YUN UNIT #: [id number] ROOM/BED: [address] : [address] AGE: 38 SEX: F ATTEND: Juan Olivarez MD ADM AUTHOR: Barney Leung MD REPT SERVICE DT/TIME: 10/22/23431 * ALL edits or amendments must be made on the electronic/computer document * OB History Chief complaint: scheduled induction HPI: G1 at 39.2 wks, preg c/b GDM and GHTN requiring hospitalization, for induction. good FM. no PIH sx. history: : 1 Current : Best EDC: 10/27/23 Admission EGA (weeks) 39 Admission EGA (days) 1 Conditions of : diabetes - gestational, HTN-gestational Labs: Blood type: O Rh: positive Rubella: immune Hepatitis B: negative HIV: negative STD: negative Syphilis: currently negative GBS: unknown Procedures: ultrasound, genetic testing, non stress test Past History Additional Medical History: denies Additional Surgical History: denies Alcohol Use Denies EtOH use Drug Use Denies recreational drugs Smoking status for patients 13 years old or older: Never Smoker Allergies: Coded Allergies: No Known Allergies (10/02/23) Objective General VS: Last Documented: Result Date Time B/P Mean 101.0 10/22 0339 B/P 140/75 10/22 033 Pulse 98 10/229 Temp 98.0 10/21 2230 Resp 16 10/21 2230 Vital Signs Date Temp Pulse Resp B/P B/P Mean Pulse Ox FiO2 10/21-10/22 97.8-98.3 81-99 16-18 126-187/63-95 89.0-133.0 PATIENT WEIGHT: Weight (lb): 200 Weight (oz): Weight (kg): 90.900 Physical Exam HEENT: normocephalic w/o injury Neuro: Exam: alert, oriented x3 Abdomen: gravid, soft, no abnormal tenderness Uterine activity: Monitor: toco Frequency (description): irregular Pelvic exam: Pelvis clinically adequate: yes, inlet appears appropriate, pubic bone config appropr, no midpelvic contraction Vulvar lesions: none, no evidence herpetic les, no evidence of other STD Cervical/ exam: Dilatation (cm): 7 (per RN exam) Effacement (%): 90 Est wt (gms): 3800 Suspected macrosomia: No Suspected >/= 4500 grams No Suspected >/= 5000 grams: No station: - 2 presentation: cephalic Membranes: Membranes: Intact Baby A: Baby A baseline: 150 bpm Baby A variability: moderate 6-25 bpm Baby A accelerations: 15 X 15 Baby A decelerations: none Baby A FHR category: category 1 Results Findings/Data: Laboratory Tests: 10/22 10/21 10/21 10/21 0034 2036 1638 1226 Chemistry Sodium (135 - 145 mEq/L) 136 Potassium (3.5 - 5.0 mEq/L) 4.3 Chloride (100 - 115 mEq/L) 105 Carbon Dioxide (22 - 31 mEq/L) 20 L Anion Gap (10 - 20) 15.20 BUN (7 - 18 mg/dL) 14 Creatinine (0.5 - 1.0 mg/dL) 0.9 Glomerular Filtr Rate (>60 ml/min) 83 Glucose (65 - 110 mg/dL) 82 POC Glucose (65 - 110 mg/dL) 98 74 98 Calcium (8.4 - 10.2 mg/dL) 8.8 Total Bilirubin (0.2 - 1.0 mg/dL) 0.2 AST (15 - 37 units/L) 30 ALT (12 - 78 units/L) 29 Total Alk Phosphatase (46 - 116 units/L) 281 H Total Protein (6.3 - 8.2 gm/dL) 6.0 L Albumin (3.4 - 4.8 gm/dL) 2.2 L Hematology WBC (6.5 - 12.3 K/mm3) 10.4 RBC (3.51 - 4.69 M/mm3) 4.64 Hgb (10.1 - 13.8 g/dL) 13.6 Hct (32.5 - 41.8 %) 40.3 MCV (84.6 - 96.6 fL) 86.9 MCH (27.3 - 33.9 pg) 29.3 MCHC (32.0 - 34.2 gm/dL) 33.7 RDW (12.2 - 16.3 %) 15.9 Plt Count (134 - 363 K/mm3) 219 MPV (9.2 - 12.7 fL) 11.2 Neut % (Auto) (57.9 - 77.3 %) 69.5 Lymph % (Auto) (14.5 - 29.7 %) 21.7 Glenn % (Auto) (3.6 - 10.2 %) 6.6 Eos % (Auto) (0.0 - 3.0 %) 0.5 Baso % (Auto) (0.1 - 0.9 %) 0.7 Neut # (Auto) (K/mm3) 7.2 Lymph # (Auto) (K/mm3) 2.3 Glenn # (Auto) (K/mm3) 0.7 Eos # (Auto) (K/mm3) 0.05 Baso # (Auto) (K/mm3) 0.1 Serology Treponema pallidum Ab (NONREACTIVE) NONREACTIVE Hep Bs Antigen (NONREACTIVE) NONREACTIVE Hepatitis C Antibody (NONREACTIVE) NONREACTIVE Hep C Ab Signal/Cutoff (<0.80) 0.06 HIV 1 2 Antibody (NONREACTIVE) NONREACTIVE Diagnosis, Assessment Plan Diagnosis, Assessment Plan Free Text A P: 39.2 wks, GDM, GHTN, for induction. responded well to cytotec. started on pit but had some decelerations. pit now off with Cat I FHRT, will manage more expectantly for now. antic , at 0438 RPT #:[id number] END OF REPORT [id number] 13:14:00 [facility] ([facility]) Clinical Note REPORT#:[id number] REPORT STATUS: Signed REPORT INITIALIZATION DATE:10/04/23 TIME: 1314 PATIENT: HERB YUN UNIT #: [id number] ROOM/BED: [id number] : 84 AGE: 38 SEX: F ATTEND: Juan Olivarez MD ADM AUTHOR: Juan Olivarez MD REPT SERVICE DT/TIME: 10/04/23 1314 * ALL edits or amendments must be made on the electronic/computer document * Clinical Note Note: Patient at 36 5/7 wga. Admitted for elevated BP's and elevated lever enzyme. BP' s well controlled on labetalol 100 mg po tid. No FELDER or visual changes. No RUQ pain. Good FM. Mild swelling. Serial labs followed and now normal x 2 with resolution of elevated liver enzyme. Patient with gestational hypertension vs mild PIH. Will d/c home on bedrest with close follow up. Anticipate delivering/ induction at 38 weeks. PIH precautions reviewed. at 1317 RPT #:[id number] END OF REPORT [id number] 16:35:00 [facility] ([facility]) EMERGENCY PROVIDER REPORT REPORT#:[id number] REPORT STATUS: Signed DATE:10/02/23 TIME: 163 PATIENT: HERB YUN UNIT #: [id number] ROOM/BED: [id number] AGE: 38 SEX: F PCP PHYS: Juan Olivarez MD SERVICE AUTHOR: Kai Peres MD * ALL edits or amendments must be made on the electronic/computer document * ROSA MARIA History Chief complaint: ELEVATED BP AT HOME HPI: THIS IS A 38 Y/O AT 36W 3DAYS GESTATION WHO WAS SENT IN BY OFFICE FOR ELEVATED BP AT HOME. BP AT HOME WAS RUNNING IN THE 150'S SHE HAD A MILDLY ELEVATED BP IN OFFICE 2 WKS AGO. history: : 1 Term: 0 Current : EDC: 10/27/23 EGA (weeks/days): 36 weeks Conditions of : gestational diabetes, pre-eclampsia Past medical history: denies PMH Past surgical history: denies PSH Medications: Current Hospital Medications: Cardiovascular Drugs Sig/Sonal Start time Last Medication Dose Route Stop Time Status Admin Labetalol HCl 100 MG TID 10/02 2099 AC (NORMODYNE 100 MG) PO 11/30 2058 Hydralazine HCl 10 MG ASDIR PRN 10/02 170 AC (hydrALAZINE HCL IV 20MG) Labetalol HCl 20 MG ONCE PRN 10/02 1699 AC (NORMODYNE 100 MG/20 IV ML VIAL) Labetalol HCl 40 MG ASDIR PRN 10/02 170 AC (NORMODYNE 100 MG/20 IV ML VIAL) Labetalol HCl 80 MG ASDIR PRN 10/02 170 AC (NORMODYNE 100 MG/20 IV ML VIAL) Central Nervous System Agents Sig/Sonal Start time Last Medication Dose Route Stop Time Status Admin Acetaminophen 650 MG Q4H PRN PRN 10/02 1699 AC (ACETAMINOPHEN 325 PO 11/30 1658 MG TAB) Promethazine HCl 25 MG Q6H PRN PRN 10/02 1699 UNV (PHENERGAN 25 MG RECTAL 11/30 1658 SUPP) Gastrointestinal Drugs Sig/Sonal Start time Last Medication Dose Route Stop Time Status Admin Docusate Sodium 100 MG Q12HR 10/02 2099 AC (DOCUSATE SODIUM 100 PO 11/30 2058 MG CAP) Al Hydrox/Mg Hydrox/ 30 ML Q4H PRN PRN 10/02 1699 AC Simethicone PO 11/30 1658 (MYLANTA 30 ML SUSP) Magnesium Hydroxide 30 ML Q6H PRN PRN 10/02 1699 AC (MILK OF MAGNESIA 30 PO 11/30 1658 ML UD) Ondansetron Base 4 MG Q4H PRN PRN 10/02 1699 AC (ZOFRAN ODT 4MG) PO 11/30 1658 Ondansetron HCl 4 MG Q4H PRN PRN 10/02 1699 UNV (ZOFRAN 2 MG/ML 4 MG IV 11/30 1658 SYR) Polyethylene Glycol 17 GM DAILY PRN PRN 10/02 170 UNV (POLYETHYLENE GLYCOL PO 11/30 1658 PKT) Vitamins Sig/Sonal Start time Last Medication Dose Route Stop Time Status Admin Multivit/ 1 TAB DAILY 10/03 0900 UNV Folic Acid/Iron PO 12/01 0859 ( Vitamin Tablet) Allergies Coded Allergies: No Known Allergies (10/02/23) Objective General VS: PATIENT WEIGHT: Weight (lb): Weight (oz): Weight (kg): 90.677609 Physical Exam HEENT: normocephalic w/o injury Abdomen: gravid, soft, no abnormal tenderness, no guarding, no rebound tenderness Uterine activity: Monitor: toco Frequency (description): none FHR evaluation: Baseline: 140 bpm Variability: moderate 6-25 bpm Accelerations: 15 X 15 Decelerations: none FHR category: category 1 Membranes: Membranes: Intact Lower extremities: Edema: trace Results Findings/Data: Laboratory Tests: 10/02 1624 Hematology WBC (6.5 - 12.3 K/mm3) 10.6 RBC (3.51 - 4.69 M/mm3) 4.94 H Hgb (10.1 - 13.8 g/dL) 14.4 H Hct (32.5 - 41.8 %) 42.6 H MCV (84.6 - 96.6 fL) 86.2 MCH (27.3 - 33.9 pg) 29.1 MCHC (32.0 - 34.2 gm/dL) 33.8 RDW (12.2 - 16.3 %) 13.5 Plt Count (134 - 363 K/mm3) 261 MPV (9.2 - 12.7 fL) 11.0 Neut % (Auto) (57.9 - 77.3 %) 69.6 Lymph % (Auto) (14.5 - 29.7 %) 22.8 Glenn % (Auto) (3.6 - 10.2 %) 5.6 Eos % (Auto) (0.0 - 3.0 %) 0.4 Baso % (Auto) (0.1 - 0.9 %) 0.8 Neut # (Auto) (K/mm3) 7.4 Lymph # (Auto) (K/mm3) 2.4 Glenn # (Auto) (K/mm3) 0.6 Eos # (Auto) (K/mm3) 0.04 Baso # (Auto) (K/mm3) 0.1 Urines Urine Color (YELLOW) YELLOW Urine Appearance (CLEAR) CLEAR Urine pH (5 - 9) 6.0 Ur Specific [place] (1.001 - 1.035) 1.010 Urine Protein (NEGATIVE) NEGATIVE Urine Glucose (UA) (NEGATIVE) NEGATIVE Urine Ketones (NEGATIVE) NEGATIVE Urine Blood (NEGATIVE) NEG Urine Nitrite (NEGATIVE) NEGATIVE Urine Bilirubin (NEGATIVE) NEGATIVE Urine Urobilinogen (<=1.0 EU/dL) 0.2 Ur Leukocyte Esterase (NEGATIVE) 3+ H Urine RBC (NONE SEEN #/hpf) 16-20 H Urine WBC (NONE SEEN #/hpf) 21-30 H Ur Epithelial Cells (RARE - FEW #/HPF) RARE Urine Bacteria (RARE - FEW /HPF) RARE Diagnosis, Assessment Plan Diagnosis, Assessment Plan Assessment/Impression: PREG @ 36WS ELEVATED BP/MOST LIKELY PRE-ECLAMPSIA GDM Plan: admit to observation, ADMIT START LABETALOL PROTOCOL IF NEEDED DR OLIVAREZ HAS GIVEN ADMIT ORDERS [facility] PENDING Plan discussed with: patient, spouse/partner, nurse, DR OLIVAREZ HAS GIVEN ADMISSION ORDERS at 1701 RPT #:[id number] END OF REPORT [facility]
--- NOTE | 2025-06-20 18:02 | RAD REPORT ---
EXAM: Chest Single View HISTORY: 39 years Female epigastric pain COMPARISON: No prior exams FINDINGS: LUNGS/PLEURA: The lungs are clear. No pleural effusions or pneumothorax. No pulmonary edema. CARDIAC/MEDIASTINUM: The cardiac silhouette is within normal limits. UPPER ABDOMEN: No significant abnormality. BONES: No acute abnormality. LINES/TUBES/OTHER: N/A IMPRESSION: No evidence of acute cardiopulmonary disease.
[2025-06-20] MEDS ORDERED: KETOROLAC 30 MG/ML INJ ONE (18:10)
[2025-06-20] MEDS ORDERED: DIPHENHYDRAMINE 50 MG/ML VIAL ONE (18:10)
[2025-06-20] MEDS ORDERED: METOCLOPRAMIDE 10 MG/2mL INJ ONE (18:10)
[2025-06-20] MEDS ORDERED: NA CHLORIDE 0.9% 1,000 ML ONE (18:10)
[2025-06-20 18:26] LABS: Absolute Lymphocytes (CBC) 2.0 K/uL (0.7-4.9); Hematocrit 43.1 % (36.0-45.0); Hemoglobin 14.8 g/dL (12.0-15.0); MCH 30.7 pg (27.0-35.0); MCHC 34.2 g/dL (32.0-36.0); MCV 89.8 fL (80-100); MPV 6.9 fL (7.6-11.3); Nucleated RBC Absolute Count 0.0 (0-0); Nucleated Red Blood Cells % 0.0 % (0-0); RBC Red Blood Cell Count 4.80 M/uL (3.86-4.86); White Blood Count 9.90 thou/uL (4.3-10.9)
[2025-06-20 19:26] LABS: ALT/SGPT 23.0 U/L (13-56); AST/SGOT 14.0 U/L (15-37); Albumin 3.4 g/dL (3.4-5.0); Albumin/Globulin Ratio 0.9 (1.1-1.8); Alkaline Phosphatase 89.0 U/L (45-117); BUN Blood Urea Nitrogen 13.0 mg/dL (7-18); Globulin 3.6 g/dL (2.3-3.5); Glucose Level 111.0 mg/dL (74-106); Lipase 60.0 U/L (13-75)
[2025-06-20 19:35] LABS: Potassium 3.9 mEq/L (3.5-5.1)
[2025-06-20 19:38] LABS: Anion Gap 10.9 mEq/L (5.0-15.0)
[2025-06-20 20:04] LABS: Urine Microscopic Reflex YN NO UMIC
--- NOTE | 2025-06-20 20:38 | RAD REPORT ---
Abdomen Exam Limited: 06/20/2025 7:50 PM CLINICAL HISTORY: upper abdomen pain STUDY: Limited right upper quadrant ultrasound of abdomen. COMPARISON: None. FINDINGS: Liver: Within normal limits. Bile ducts: No intrahepatic or extrahepatic biliary ductal dilatation. Common bile duct measures 4 mm. Gallbladder: Gallbladder wall thickened with pericholecystic edema. The wall measures 5 mm. No stones identified. No sonographic Alberto sign. IMPRESSION: Gallbladder wall thickening and pericholecystic edema but no stones or sonographic Alberto's sign pres ent. The findings are nonspecific for acute cholecystitis. HIDA scan could confirm cystic duct patency.
--- NOTE | 2025-06-20 20:41 | RAD REPORT ---
EXAMINATION: Abdomen Pelvis W Contrast CLINICAL INDICATION: Female, 39 years old.upper abdomen pain TECHNIQUE: CT abdomen and pelvis was performed, after the administration of IV contrast, [facility]. Axial, sagittal and coronal reconstructions were obtained. One or more of the following dose reduction techniques were used: Automated exposure control, adjustment of the mA and/o r kV according to patient size, and/or iterative reconstruction. Unless otherwise specified, incidental findings do not require dedicated imaging follow-up. [id number]. COMPARISON: Concurrent right upper quadrant ultrasound FINDINGS: LOWER CHEST: No acute process identified. No significant pericardial effusion. UPPER GI: No significant abnormality. LIVER: No significant focal abnormality. GALLBLADDER/BILE DUCTS: Distended gallbladder with mild gallbladder wall thickening.? PANCREAS: No mass, ductal dilation, or melissa-pancreatic fluid. SPLEEN: Unremarkable. ADRENALS: No adrenal masses. KIDNEYS AND URETERS: No hydronephrosis. No suspicious renal mass. No renal calculi. No ureteral calcu li. ABDOMINAL AORTA AND OTHER VESSELS: Normal caliber aorta and IVC. PERITONEUM: Small volume of pelvic free fluid which is likely physiologic. LYMPH NODES: No pathologic lymphadenopathy. ABDOMINAL WALL: Unremarkable SMALL BOWEL/COLON: Small bowel has normal course and caliber. No colonic wall thickening or pericolon ic inflammatory changes. Normal appendix. Mild diverticulosis without diverticulitis. URINARY BLADDER: Underdistended but grossly unremarkable. REPRODUCTIVE ORGANS: No pathologic process. MUSCULOSKELETAL: Mild disc height loss at L5-S1. ADDITIONAL FINDINGS: None. IMPRESSION: No definite acute findings within the abdomen or pelvis. Distended gallbladder with gallbladder wall thickening which is nonspecific. No pericholecystic inflammatory changes or radiopaque gallstones. Reference concurrent gallbladder ultrasound. Normal appendix.
--- NOTE | 2025-06-20 21:05 | EDPHYS ---
Physician Documentation [facility] Name: Tamera Huff Age: 39 yrs Sex: Female : 1985 Arrival Date: 06/20/2025 Time: 16:43 Bed 19 Private MD: ED Physician Reuben Madison HPI: 06/20 17:30 This 39 yrs old Female presents to ER via Ambulatory with complaints of Abdominal Pain cp - UPPER. 17:30 The patient presents with abdominal pain in the epigastric area, in the upper abdomen. cp 17:30 Onset: The symptoms/episode began/occurred 2 hour(s) ago. The symptoms radiate to back. cp Associated signs and symptoms: Pertinent positives: nausea, Pertinent negatives: chest pain, diarrhea, dysuria, fever, vomiting. The symptoms are described as pressure. 17:30 Severity of pain: in the emergency department the pain has improved. 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 - Infectious Disease History:: Denies. - Social history:: Smoking status: Patient denies any tobacco usage or history of. ROS: 17:33 Constitutional: Negative for body aches, chills, fever, poor PO intake, cp 17:33 Eyes: Negative for injury, pain, redness, and discharge, cp 17:33 Cardiovascular: Negative for chest pain, palpitations, 17:33 Respiratory: Negative for cough, shortness of breath, wheezing, 17:33 Abdomen/GI: Positive for abdominal pain, nausea, of the epigastric area, right upper quadrant and left upper quadrant, Negative for diarrhea, constipation, 17:33 Back: Positive for radiated pain, 17:33 : Negative for urinary symptoms, vaginal bleeding, 17:33 Neuro: Negative for altered mental status, dizziness, headache, numbness, weakness, 17:33 All other systems are negative, Exam: 17:35 Constitutional: The patient appears in no acute distress, alert, awake, cp non-diaphoretic, non-toxic, well developed, well nourished, uncomfortable, overweight 17:35 Head/Face: Normocephalic, atraumatic. cp 17:35 Eyes: Periorbital structures: appear normal, Conjunctiva: normal, no exudate, no injection, Sclera: no appreciated abnormality, Lids and lashes: appear normal, bilaterally, 17:35 ENT: External ear(s): are unremarkable, Nose: is normal, Mouth: Lips: moist, Oral mucosa: moist, Posterior pharynx: Airway: no evidence of obstruction, patent, 17:35 Chest/axilla: Inspection: normal, 17:35 Cardiovascular: Rate: normal, Rhythm: regular, 17:35 Respiratory: the patient does not display signs of respiratory distress, Respirations: normal, no use of accessory muscles, no retractions, labored breathing, is not present, Breath sounds: are clear throughout, no decreased breath sounds, no stridor, no wheezing, 17:35 Abdomen/GI: Inspection: abdomen appears normal, Bowel sounds: active, all quadrants, Palpation: soft, in all quadrants, moderate abdominal tenderness, in the epigastric area, right upper quadrant and left upper quadrant, rebound tenderness, is not appreciated, involuntary guarding, is not appreciated, 17:35 Back: CVA tenderness, is absent, 17:35 Neuro: Orientation: to person, place \T\ time. Mentation: is normal, Vital Signs: 17:07 BP 128 / 88; Pulse 86; Resp 16; Temp 97.6; Pulse Ox 100% ; Weight 68.04 kg; Height 5 db ft. 3 in. ; 18:00 BP 125 / 84; Pulse 88; Resp 16; Pulse Ox 100% ; me1 18:45 BP 121 / 75; Pulse 89; Resp 16; Pulse Ox 100% ; me1 19:16 BP 124 / 73; Pulse 89; Resp 20; Pulse Ox 99% on R/A; Pain 0/10; tb4 20:09 BP 125 / 73; Pulse 79; Resp 17; Pulse Ox 98% on R/A; Pain 0/10; tb4 21:13 BP 122 / 81; Pulse 79; Resp 18; Pulse Ox 99% on R/A; Pain 0/10; tb4 17:07 Body Mass Index 26.57 (68.04 kg, 160.02 cm) db 19:16 Pain Scale: Adult tb4 20:09 Pain Scale: Adult tb4 21:13 Pain Scale: Adult tb4 19:16 Patient denies pain tb4 MDM: 17:05 Medical Screening Exam initiated cp 18:00 Differential diagnosis: appendicitis, cholecystitis, Cholelithiasis, gastritis, cp pancreatitis, Perf. Duodenal Ulcer, Perf. Gastric Ulcer, Pyelonephritis, Ureterolithiasis, urinary tract infection. 20:55 Data reviewed: vital signs, nurses notes, lab test result(s), radiologic studies, CT cp scan, plain films, ultrasound. 20:55 Management of patient was discussed with the following: Statue Maker: DR Angeles who recommends patient is safe for discharge to prescribe oral antibiotic and he will follow-up with patient in clinic this upcoming Saturday. Recommends low-fat diet and clear liquids and patient is instructed if pain returns or becomes persistent to return to the emergency department for evaluation. 21:04 Counseling: I had a detailed discussion with the patient and/or guardian regarding the historical points, exam findings, and any diagnostic results supporting the discharge/admit diagnosis, lab results, radiology results, the need for outpatient follow up, for definitive care, a general surgeon, to return to the emergency department if symptoms worsen or persist or if there are any questions or concerns that arise at home. Response to treatment: the patient's symptoms have resolved after treatment, the patient's pain is gone. 21:04 I considered the following discharge prescriptions or medication management in the emergency department Medications were administered in the Emergency Department. See MAR. 06/20 17:01 Order name: CBC with Diff; Complete Time: 18:36 06/20 18:36 Interpretation: Normal except: MPV 6.9. 06/20 17:01 Order name: CMP; Complete Time: 20:03 06/20 17:01 Order name: Lipase; Complete Time: 20:03 06/20 17:29 Order name: UA Rfx Nishant Cult if indicated; Complete Time: 20:50 06/20 20:50 Interpretation: Reviewed. 06/20 17:29 Order name: Test, Urine; Complete Time: 20:50 06/20 17:41 Order name: XRAY Chest (1 view); Complete Time: 18:36 06/20 17:41 Order name: CT Abd/Pelvis - IV Contrast Only; Complete Time: 20:50 06/20 20:04 Order name: US Abdomen Limited: gallbladder; Complete Time: 20:50 06/20 21:01 Interpretation: Report reviewed. cp 06/20 17:01 Order name: IV Saline Lock; Complete Time: 18:20 cp 06/20 17:01 Order name: Labs collected and sent; Complete Time: 18:20 cp Administered Medications: 18:21 Drug: NS 0.9% IV 1000 ml IV at 1000 ml once; to be given as a bolus over 60 minutes me1 Route: IV; Rate: 1000 ml; Site: left antecubital; 19:12 Follow up: Response: No adverse reaction; IV Status: Completed infusion me1 18:21 Drug: metoCLOPramide IVP 10 mg IVP once; over 1 to 2 minutes Route: IVP; Site: left me1 antecubital; 18:40 Follow up: Response: No adverse reaction; Nausea is decreased me1 18:21 Drug: Ketorolac IVP 15 mg IVP once; may give if test negative Route: IVP; me1 Site: left antecubital; 18:40 Follow up: Response: No adverse reaction; Pain is decreased me1 18:21 Drug: diphenhydrAMINE IVP 25 mg IVP once Route: IVP; Site: left antecubital; me1 18:40 Follow up: Response: No adverse reaction; Pain is decreased me1 21:11 Drug: Amoxicillin-Clavulanate PO 875 mg PO once Route: PO; tb4 21:19 Follow up: Response: No adverse reaction tb4 Disposition Summary: 06/20/25 21:04 Discharge Ordered Notes: Location: Home cp Problem: new cp Symptoms: have improved cp Condition: Stable cp Diagnosis - Disorders of gallbladder, 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 classified cp elsewhere Followup: cp - With: Santino Angeles MD - When: 2 - 3 days - Reason: Recheck today's complaints Discharge Instructions: - Discharge Summary Sheet cp - Gallbladder Eating Plan cp Forms: - Medication Reconciliation Form cp - Antibiotic Education cp - Prescription Opioid Use cp - Patient Portal Instructions cp - Leadership Thank You Letter cp Prescriptions: - Augmentin 875-125 mg Oral Tablet - take 1 tablet ORAL route every 12 hours for 10 days; 20 tablet; Refills: 0, cp Product Selection Permitted - Zofran 4 mg Oral Tablet - take 1 tablet ORAL route every 12 hours As needed; 20 tablet; Refills: 0, cp Product Selection Permitted - dicyclomine 20 mg Oral tablet - take 1 tablet ORAL route 4 times per day; 30 tablet; Refills: 0, Product cp Selection Permitted Signatures: Dispatcher [employer] [facility] Reuben Ramirez PA-C PA-C cp Benton, Danielle, RN RN db Pretty Preciado, RN RN me1 Ashley Tucker RN RN tb4 Corrections: (The following items were deleted from the chart) 17: 17:01 CBC+H.LAB.BRZ ordered. EDNM EDNM 17: 17:01 COMPREHENSIVE METABOLIC PANEL+C.LAB.BRZ ordered. EDNM EDNM 17: 17:01 LIPASE+C.LAB.BRZ ordered. EDNM EDNM 17: 17:08 Allergies: No Known Allergies; db db 17:29 17:29 UA Rfx Nishant Cult if indicated+U.LAB.BRZ ordered. EDNM EDNM 17:29 17:29 Test, Urine+UC.LAB.BRZ ordered. [facility] EDNM 17:42 17:42 Chest Single View+RAD.RAD.BRZ ordered. EDNM EDNM 17:42 17:42 Abdomen Pelvis W Con+CT.RAD.BRZ ordered. [facility] 06/21 03:52 03:51 Counseling: I had a detailed discussion with the patient and/or guardian cp regarding the historical points, exam findings, and any diagnostic results supporting the discharge/admit diagnosis, lab results, radiology results, the need for outpatient follow up, for definitive care, a general surgeon, to return to the emergency department if symptoms worsen or persist or if there are any questions or concerns that arise at home, cp 03:52 03:51 Response to treatment: the patient's symptoms have resolved after treatment, the cp patient's pain is gone, cp
--- NOTE | 2025-06-20 21:05 | ER ---
Nurse's Notes [facility] Name: aTmera Huff Age: 39 yrs Sex: Female : 1985 Arrival Date: 06/20/2025 Time: 16:43 Bed 19 Private MD: Diagnosis: Disorders of gallbladder, 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 classified elsewhere Presentation: 06/20 17:07 Chief complaint: Patient states: UPPER ABD PAIN X 2 HOURS. DENIES LOC. STATES HAD DARK db STOOL TODAY. Coronavirus screen: Client denies travel out of the [place] in the last 14 days. At this time, the client does not indicate any symptoms associated with coronavirus-19. Ebola Screen: Patient negative for fever greater than or equal to 101.5 degrees Fahrenheit, and additional compatible Ebola Virus Disease symptoms Patient denies exposure to infectious person. Patient denies travel to an Ebola-affected area in the 21 days before illness onset. No symptoms or risks identified at this time. Initial Sepsis Screen: Does the patient meet any 2 criteria? No. Patient's initial sepsis screen is negative. Does the patient have a suspected source of infection? No. Patient's initial sepsis screen is negative. Risk Assessment: Do you want to hurt yourself or someone else? Patient reports no desire to harm self or others. Onset of symptoms was June 20, 2025. 17:07 Method Of Arrival: Ambulatory db 17:07 Acuity: BHAVIN 3 db Triage Assessment: 17:08 General: Appears in no apparent distress. uncomfortable, Behavior is calm, cooperative. db Pain: Complains of pain in right upper quadrant and left upper quadrant. Neuro: Level of Consciousness is awake, alert, obeys commands, Oriented to person, place, time, situation. GI: Reports upper abdominal pain. 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 - Infectious Disease History:: Denies. - Social history:: Smoking status: Patient denies any tobacco usage or history of. Screenin:20 [facility] ED Fall Risk Assessment (Adult) History of falling in the last 3 months, me1 including since admission No falls in past 3 months (0 pts) Confusion or Disorientation No (0 pts) Intoxicated or Sedated No (0 pts) Impaired Gait No (0 pts) Mobility Assist Device Used No (0 pt) Altered Elimination No (0 pt) Score/Fall Risk Level 0 - 2 = Low Risk Maintained a safe environment, Provided non-skid footwear, Hourly rounding (assess needs \T\ fall precautionary measures) done. Abuse screen: Denies threats or abuse. Nutritional screening: No deficits noted. Tuberculosis screening: No symptoms or risk factors identified. 20:16 [facility] ED Fall Risk Assessment (Adult) History of falling in the last 3 months, tb4 including since admission No falls in past 3 months (0 pts) Confusion or Disorientation No (0 pts) Intoxicated or Sedated No (0 pts) Impaired Gait No (0 pts) Mobility Assist Device Used No (0 pt) Altered Elimination No (0 pt) Score/Fall Risk Level 0 - 2 = Low Risk Maintained a safe environment. Abuse screen: Denies threats or abuse. Denies injuries from another. Nutritional screening: No deficits noted. Tuberculosis screening: No symptoms or risk factors identified. Assessment: 17:20 General: Appears uncomfortable, well groomed, well developed, well nourished, Behavior me1 is calm, cooperative, appropriate for age, Reports UPPER ABD PAIN X 2 HOURS. DENIES LOC. STATES HAD DARK STOOL TODAY. Pain: Complains of pain in left upper quadrant and right upper quadrant Pain does not radiate. Pain currently is 8 out of 10 on a pain scale. Quality of pain is described as crampy, sharp, Pain began 2 hours ago. Is continuous. Neuro: Level of Consciousness is awake, alert, obeys commands, Oriented to person, place, time, situation, Appropriate for age. Cardiovascular: Patient's skin is warm and dry. Respiratory: Airway is patent Respiratory effort is even, unlabored, Respiratory pattern is regular, symmetrical. GI: Bowel sounds present X 4 quads. Abd is soft X 4 quads Reports upper abdominal pain, since 2 hours ago dark stools. : No signs and/or symptoms were reported regarding the genitourinary system. EENT: No signs and/or symptoms were reported regarding the EENT system. Derm: Skin is intact, is healthy with good turgor, Skin is normal. Musculoskeletal: Circulation, motion, and sensation intact. Range of motion: intact in all extremities. 20:16 General: Appears in no apparent distress. comfortable, Behavior is calm, cooperative, tb4 at bedside. Pain: Denies pain. Neuro: Level of Consciousness is awake, alert, obeys commands, Oriented to person, place, time, situation, Moves all extremities. Full function Gait is steady, Speech is normal, Facial symmetry appears normal. Cardiovascular: Patient's skin is warm and dry. Respiratory: Airway is patent Respiratory effort is even, unlabored, Respiratory pattern is regular, symmetrical. GI: Abdomen is round non-distended, Bowel sounds present X 4 quads. : No deficits noted. No signs and/or symptoms were reported regarding the genitourinary system. EENT: No deficits noted. No signs and/or symptoms were reported regarding the EENT system. Derm: No deficits noted. No signs and/or symptoms reported regarding the dermatologic system. Skin is intact, is healthy with good turgor, Skin is dry, Skin is normal. Musculoskeletal: Circulation, motion, and sensation intact. Range of motion: intact in all extremities. Vital Signs: 17:07 BP 128 / 88; Pulse 86; Resp 16; Temp 97.6; Pulse Ox 100% ; Weight 68.04 kg; Height 5 db ft. 3 in. ; 18:00 BP 125 / 84; Pulse 88; Resp 16; Pulse Ox 100% ; me1 18:45 BP 121 / 75; Pulse 89; Resp 16; Pulse Ox 100% ; me1 19:16 BP 124 / 73; Pulse 89; Resp 20; Pulse Ox 99% on R/A; Pain 0/10; tb4 20:09 BP 125 / 73; Pulse 79; Resp 17; Pulse Ox 98% on R/A; Pain 0/10; tb4 21:13 BP 122 / 81; Pulse 79; Resp 18; Pulse Ox 99% on R/A; Pain 0/10; tb4 17:07 Body Mass Index 26.57 (68.04 kg, 160.02 cm) db 19:16 Pain Scale: Adult tb4 20:09 Pain Scale: Adult tb4 21:13 Pain Scale: Adult tb4 19:16 Patient denies pain tb4 ED Course: 16:46 Patient arrived in ED. cj3 16:47 Reuben Ramirez PA-C is PHCP. cp 16:47 Reuben Madison MD is Attending Physician. cp 17:08 Triage completed. db 17:09 Arm band placed on Patient placed. db 17:20 Patient has correct armband on for positive identification. Bed in low position. Call me1 light in reach. Side rails up X 1. Provided Education on: POC. Verbalized understanding.. Client placed on continuous cardiac and pulse oximetry monitoring. NIBP monitoring applied. Pulse ox on. NIBP on. 17:20 No provider procedures requiring assistance completed. me1 17:34 Pretty Preciado, RN is Primary Nurse. me1 17:58 XRAY Chest (1 view) In Process Unspecified. EDMS 18:21 Initial lab(s) drawn, by me, sent to lab. Inserted saline lock: 22 gauge in left me1 antecubital area, using aseptic technique. 19:35 Radiology exam delayed due to test not completed at this time. mw3 20:16 Client placed on continuous cardiac and pulse oximetry monitoring. NIBP monitoring tb4 applied. Pulse ox on. Door closed. 20:16 Urine collected: clean catch specimen, clear, CT scan and ultrasound. tb4 20:26 US Abdomen Limited: gallbladder In Process Unspecified. EDMS 20:30 CT Abd/Pelvis - IV Contrast Only In Process Unspecified. EDMS 21:02 Santino Angeles MD is Referral Physician. cp 21:18 IV discontinued, intact, bleeding controlled, No redness/swelling at site. Pressure tb4 dressing applied. Administered Medications: 18:21 Drug: NS 0.9% IV 1000 ml IV at 1000 ml once; to be given as a bolus over 60 minutes me1 Route: IV; Rate: 1000 ml; Site: left antecubital; 19:12 Follow up: Response: No adverse reaction; IV Status: Completed infusion me1 18:21 Drug: metoCLOPramide IVP 10 mg IVP once; over 1 to 2 minutes Route: IVP; Site: left me1 antecubital; 18:40 Follow up: Response: No adverse reaction; Nausea is decreased me1 18:21 Drug: Ketorolac IVP 15 mg IVP once; may give if test negative Route: IVP; me1 Site: left antecubital; 18:40 Follow up: Response: No adverse reaction; Pain is decreased me1 18:21 Drug: diphenhydrAMINE IVP 25 mg IVP once Route: IVP; Site: left antecubital; me1 18:40 Follow up: Response: No adverse reaction; Pain is decreased me1 21:11 Drug: Amoxicillin-Clavulanate PO 875 mg PO once Route: PO; tb4 21:19 Follow up: Response: No adverse reaction tb4 Medication: 17:20 VIS not applicable for this client. me1 Outcome: 21:04 Discharge ordered by MD. curran 21:19 Discharged to home ambulatory, with family, tb4 21:19 Condition: stable 21:19 Discharge instructions given to patient, family, Instructed on discharge instructions, follow up and referral plans. Demonstrated understanding of instructions, follow-up care, medications, Prescriptions given X 3, 21:20 Patient left the ED. tb4 Signatures: Dispatcher [employer] EDMS Reuben Ramirez PA-C PA-C Pretty Callejas mw3 Cece Hamilton RN RN db Pretty Preciado RN RN me1 Kelin Lancaster 3 Ashley Tucker, RN RN tb4 Corrections: (The following items were deleted from the chart) 17:08 17:08 Allergies: No Known Allergies; db db 17:51 17:07 Chief complaint: Patient states: UPPER ABD PAIN X 2 HOURS. DENIES LOC. STATES HAD me1 DARK STOOL TODAY db
[2025-06-20] MEDS ORDERED: AMOX/K CLAV 875 MG TAB ONE (21:07)
[2025-06-20 21:46] VITALS: TEMP 97.6
[2025-06-20 21:55] VITALS: BP 122/81; O2SAT 99
== END 2025-06-20 21:20 | disposition home or self-care (01) ==
LOC: ER 16:43
DX: K82.8 Other specified diseases of gallbladder (principal); K86.89 Other specified diseases of pancreas; K83.8 Other specified diseases of biliary tract
CPT/HCPCS: 96361; 85025; 36415; 81025; 81003; 83690; 80053; 74177; 71045; 76705; 96375; 96374; 99284; Q9967; J2765; J1200; J7030; J1885